=== PATIENT | female | born 1935 | race Caucasian/White ===

== ENCOUNTER 2016-07-26 19:33 | Inpatient (IN) | payer MEDICARE, OTHER ==
[~2016-07-26] VITALS: Ht 160 cm; Wt 85.6 kg
[~2016-07-26 19:33] MED LIST: MEDR4PAK3 PO; ROBA750T3 PO
[2016-07-26 19:35] VITALS: BP 162/73; PULSE 93; RESP 20; TEMP 98.3; O2SAT 97
[2016-07-26] MEDS ORDERED: SODIUM CHLORIDE 0.9% FLUSH 5 ML FLUSH IVF PRN (20:15)
[2016-07-26] MEDS ORDERED: ASPI81TA19 (20:17)
[2016-07-26 20:19] VITALS: BP 177/74; PULSE 98; PULSE 99; RESP 18; O2SAT 96; O2SAT 97
[2016-07-26] MEDS ORDERED: AMLO5 PO (20:20)
[2016-07-26] MEDS ORDERED: TOPR50TA PO (20:20)
[2016-07-26] MEDS ORDERED: LORA-373 PO (20:20)
[2016-07-26] MEDS ORDERED: BENI40TA3 PO (20:20)
[2016-07-26] MEDS ORDERED: MELO-1 PO (20:21)
[2016-07-26] MEDS ORDERED: ROSU20 PO (20:21)
[2016-07-26] MEDS ORDERED: ZETI10TA5 PO (20:21)
[2016-07-26] MEDS ORDERED: TRAM50TA PO (20:21)
[2016-07-26] MEDS ORDERED: CELE20TA PO (20:22)
[2016-07-26] MEDS ORDERED: RANI300C PO (20:22)
[2016-07-26] MEDS ORDERED: ESTR.625 PO (20:22)
[2016-07-26] MEDS ORDERED: PANTOPRAZOLE INJ 80 MG in SODIUM CHLORIDE 0.9% INJ 100 ML IV SCH (20:30)
[2016-07-26] MEDS ORDERED: SODIUM CHLORID 0.9% 500 ML INJ 500 ML IV ONE (20:30)
[2016-07-26] MEDS ORDERED: PANTOPRAZOLE INJ 80 MG in SODIUM CHLORIDE 0.9% INJ 35 ML IV ONE (20:30)
[2016-07-26] MEDS ORDERED: ASPIRIN 81 MG CHEW TAB CHEW ONE (20:30)
[2016-07-26] MEDS ORDERED: NITROGLYCERIN 0.4 MG SL 25 TABS/BTL SL ONE (20:30)
--- NOTE | 2016-07-26 20:44 | PD ---
HPI Chief Complaint: Chest Pain Time Seen by Provider: 20:10 Travel History International Travel<30 days: No Contact w/Intl Traveler<30days: No Traveled to known affect area: No History of Present Illness HPI The patient is 80 year old female who presents to the [facility] emergency department with a history of lower chest pain bilaterally down to just at the umbilicus that began a few weeks ago. The patient reports that the pain having coming and calling, however over the last week and a half it seems to be getting worse although continuing to coming go. A week and a half ago when it was at its peak she called ambulance services that she was concerned that she was having a heart attack. She reports that she had an EKG done which was unremarkable, therefore she did not get transported for evaluation. She discuss this further with her primary care physician who started her on lorazepam. He reports that the symptoms have continued. She reports that her last stress test was done 2 years ago. She reports that many years ago she did have a heart catheterization which was reportedly unremarkable. She is followed by a human factors scientist related to her history of hypertension and hyperlipidemia, no specific problems with her heart. The patient reports that she has had worsening acid reflux in spite of taking ranitidine. She reports that on July 24 she began to have dark-appearing stools. She saw her primary care physician again today and had a rectal examination done with trace Hemoccult-positive stools. She reports that he referred her to a collar feller which is pending at this point. She reports that this afternoon after taking a nap the pain recurred, therefore she decided to come to the emergency department for evaluation and treatment. She reports that when she has the pain she has shortness of breath associated with it, diaphoresis, and nausea. She reports that she's also had intermittent soft stools that continued to be brown or darker brown in color. She reports that this occurred multiple times throughout the day today. She did have one episode of vomiting a small amount of clear liquid. The patient reports that she on a topical estrogen twice daily. She denies having any lower extremity edema, calf pain or erythema. The patient denies recent fevers, cough, congestion, neck pain, urinary symptoms, or neurologic symptoms. FOR[facility]LY [facility] Past Medical History Narrative Medical The patient's past medical history is significant for a history of colon polyps , however her last colonoscopy was 3 years ago and had no polyps at that time, history of acid reflux, history of hypertension, hyperlipidemia, arthritis, history of sleep apnea. 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 Hysterectomy: Yes (90s) Other Surgery: Yes (carpal tunnel surgery bilateral, ) Social History Alcohol Use: No Tobacco Use: No Substance Use: No Allergies-Medications (Allergen,Severity, Reaction): Coded Allergies: No Known Allergies (Unverified , 07/26/16) Reported Meds & Prescriptions Reported Meds & Active Scripts Active Reported Premarin (Estrogens Conjugated) 0.625 Mg Tab 0.625 Mg PO DAILY Celexa (Citalopram Hydrobromide) 20 Mg Tab 20 Mg PO DAILY Ranitidine (Ranitidine HCl) 300 Mg Cap 300 Mg PO DAILY Tramadol (Tramadol HCl) 50 Mg Tab 50 Mg PO Q6H PRN Meloxicam 15 Mg Tab 15 Mg PO DAILY Zetia (Ezetimibe) 10 Mg Tab 10 Mg PO DAILY Crestor (Rosuvastatin Calcium) 20 Mg Tab 20 Mg PO DAILY Norvasc (Amlodipine Besylate) 5 Mg Tab 5 Mg PO DAILY Benicar (Olmesartan) 40 Mg Tab 40 Mg PO DAILY Lorazepam 0.5 Mg Tab 0.5 Mg PO Q4H PRN Toprol XL (Metoprolol Succinate) 50 Mg Tab 50 Mg PO DAILY Aspir-Low (Aspirin) 81 Mg Tabdr Review of Systems Except as stated in HPI: all other systems reviewed are Neg General / Constitutional: No: Fever Eyes: No: Visual changes HENT: No: Headaches, Rhinorrhea, Congestion Cardiovascular: Positive: Chest Pain or Discomfort, Dyspnea on exertion Respiratory: Positive: Shortness of Breath, No: Cough Gastrointestinal: Positive: Nausea, Vomiting, Diarrhea, Abdominal Pain, Changes in Bowel Habits, Indigestion Genitourinary: No: Dysuria Musculoskeletal: No: Pain Skin: No Rash Neurologic: No: Weakness, Focal Abnormalities, Change in Mentation, Slurred Speech, Sensory Disturbance Psychiatric: No: Depression Endocrine: No: Polydipsia Hematologic/Lymphatic: No: Easy Bruising Physical Exam Narrative General: The patient is a well-developed well-nourished female in no acute distress. Head and Neck exam: Head is normocephalic atraumatic. Eyes: EOMI, pupils are equal round and reactive to light. Nose: Midline septum with pink mucous membranes Mouth: Dentition unremarkable. Moist mucus membranes. Posterior oropharynx is not erythematous. No tonsillar hypertrophy. Uvula midline. Airway patent. Neck: No palpable lymphadenopathy. No nuchal rigidity. No thyromegaly. Cardiovascular: Regular rate and rhythm without murmurs, gallops, or rubs. No pulse deficit to the extremities. Lungs: Clear to auscultation bilaterally. No wheezes, rhonchi, or rales. Abdomen: Soft, with tenderness on palpation in the midepigastric area of right and left upper quadrant of the abdomen on deep palpation. No guarding, rebound, or rigidity. Negative Houston sign. No tenderness on palpation of McBurney's point. No other tenderness on palpation of the lower quadrants of the abdomen of the suprapubic area. No masses are palpable. Normal bowel sounds are audible. Extremities: No clubbing, cyanosis, or edema. 2+ pulses in all 4 extremities. No calf tenderness on palpation. Negative Homans sign. No palpable cords. Back: No spinous process tenderness to palpation. No costovertebral angle tenderness to palpation. Neurologic Exam: Grossly nonfocal. Skin Exam: No rash noted. Intact skin that is warm and dry. Data Data Last Documented VS Vital Signs Date Time Temp Pulse Resp B/P Pulse Ox O2 Delivery O2 Flow Rate FiO2 07/26/16 21:35 96 18 119/63 97 Room Air 07/26/16 19:35 98.3 Orders Electrocardiogram (07/26/16 19:46) B-Type Natriuretic Peptide (07/26/16 20:10) Ckmb (Isoenzyme) Profile (07/26/16 20:10) Complete Blood Count With Diff (07/26/16 20:10) Comprehensive Metabolic Panel (07/26/16 20:10) Magnesium (Mg) (07/26/16 20:10) Prothrombin Time / Inr (Pt) (07/26/16 20:10) Act Partial Throm Time (Ptt) (07/26/16 20:10) Troponin I (07/26/16 20:10) Lipase (07/26/16 20:10) Chest, Single Ap (07/26/16 20:10) Ecg Monitoring (07/26/16 20:10) Bilateral Bp Monitoring (07/26/16 20:10) Iv Access Insert/Monitor (07/26/16 20:10) Oximetry (07/26/16 20:10) Oxygen Administration (07/26/16 20:10) Sodium Chloride 0.9% Flush (Ns Flush) (07/26/16 20:15) Pantoprazole Inj (Protonix Inj) (07/26/16 20:30) Pantoprazole Inj (Protonix Inj) (07/26/16 20:30) Aspirin Chew (Aspirin Chew) (07/26/16 20:30) Nitroglycerin Sl (Nitrostat Sl) (07/26/16 20:30) Sodium Chlorid 0.9% 500 Ml Inj (Ns 500 M (07/26/16 20:30) Ct Abd/Pel W Iv Contrast(Rout) (07/26/16 20:44) Lactic Acid Sepsis Protocol (07/26/16 20:44) CKMB (07/26/16 20:20) CKMB% (07/26/16 20:20) Us Abdomen Gallbladder (07/26/16 21:49) Admit Order (Ed Use Only) (07/26/16 22:20) Consult Gastroenterology (07/26/16 ) Labs Laboratory Tests Test 07/26/16 07/26/16 20:20 21:15 White Blood Count 16.5 TH/MM3 Red Blood Count 4.81 MIL/MM3 Hemoglobin 13.9 GM/DL Hematocrit 41.0 % Mean Corpuscular Volume 85.4 FL Mean Corpuscular Hemoglobin 28.9 PG Mean Corpuscular Hemoglobin 33.9 % Concent Red Cell Distribution Width 15.0 % Platelet Count 242 TH/MM3 Mean Platelet Volume 8.2 FL Neutrophils (%) (Auto) 92.4 % Lymphocytes (%) (Auto) 2.7 % Monocytes (%) (Auto) 4.0 % Eosinophils (%) (Auto) 0.2 % Basophils (%) (Auto) 0.7 % Neutrophils # (Auto) 15.3 TH/MM3 Lymphocytes # (Auto) 0.5 TH/MM3 Monocytes # (Auto) 0.7 TH/MM3 Eosinophils # (Auto) 0.0 TH/MM3 Basophils # (Auto) 0.1 TH/MM3 CBC Comment DIFF FINAL Differential Comment Prothrombin Time 10.6 SEC Prothromb Time International 1.0 RATIO Ratio Activated Partial 25.4 SEC Thromboplast Time Sodium Level 138 MEQ/L Potassium Level 3.7 MEQ/L Chloride Level 103 MEQ/L Carbon Dioxide Level 25.9 MEQ/L Anion Gap 9 MEQ/L Blood Urea Nitrogen 12 MG/DL Creatinine 0.93 MG/DL Estimat Glomerular Filtration 58 ML/MIN Rate Random Glucose 117 MG/DL Calcium Level 9.8 MG/DL Magnesium Level 2.0 MG/DL Total Bilirubin 2.0 MG/DL Aspartate Amino Transf 216 U/L (AST/SGOT) Alanine Aminotransferase 215 U/L (ALT/SGPT) Alkaline Phosphatase 356 U/L Total Creatine Kinase 229 U/L Creatine Kinase MB 2.7 NG/ML Creatine Kinase MB % 1.2 % Troponin I LESS THAN 0.02 NG/ML B-Type Natriuretic Peptide 39 PG/ML Total Protein 8.5 GM/DL Albumin 4.3 GM/DL Lipase GREATER THAN 04460 U/L Lactic Acid Level 1.5 mmol/L MDM Medical Decision Making Medical Screen Exam Complete: Yes Emergency Medical Condition: Yes Medical Record Reviewed: Yes Interpretation(s) Last Impressions Gall Bladder Ultrasound 07/26/162148 Signed Impressions: Service Date/Time: Tuesday, July 26, 2016 22:00 - CONCLUSION: 1. Enlarged echogenic pancreas raising possibility of pancreatitis. 2. Distended gallbladder with gallbladder wall thickening with stones not being seen. The common bile duct is not dilated. Bob Aviles MD Abdomen/Pelvis CT [id number] Signed Impressions: Service Date/Time: Tuesday, July 26, 2016 23:00 - CONCLUSION: 1. The gallbladder is at the upper limits of normal in size and contains areas of increased echogenicity which may represent small gallstones and/or sludge. There is no definite wall thickening on the CT and is no inflammatory change. 2. There is no evidence of biliary obstruction. 3. The pancreas appears unremarkable with no focal mass or ductal dilatation. 4. Small retrocardiac hiatal hernia. Ramin Anguiano MD Chest X-Ray 07/26/[id number] Signed Impressions: Service Date/Time: Tuesday, July 26, 2016 20:46 - CONCLUSION: No acute disease. Bob Aviles MD Differential Diagnosis Hemorrhagic esophagitis, versus gastritis, versus peptic ulcer disease, versus pancreatitis, versus biliary colic, versus diverticulosis, versus AVM malformation, versus acute coronary syndrome Narrative Course During the course of the patients emergency department visit, the patients history, examination, and differential diagnosis were reviewed with the patient. The patient had IV access obtained and blood work sent for analysis. The patient was placed on a monitoring specialist with oximetry and blood pressure monitoring. An EKG was done on arrival. The patient's EKG shows a sinus rhythm heart rate of 93 with nonspecific T-wave abnormalities, no acute ST segment elevation is noted. A chest x-ray was ordered. The patient was provided Protonix 80 mg IV followed by Protonix 8 milligrams IV per hour. The patients laboratory studies were reviewed and remarkable for white count of 16.5, hemoglobin 13.9, platelets 242 with 92.4 neutrophils. CMP is remarkable for glucose of 117, total bilirubin 2.0, AST 216, ALT 2:15, alkaline phosphatase 356, CPK 229 with a normal MB percent, troponin I less than 0.02, BNP 39, lactic acid is 1.5, total protein is 8.5, lipase is greater than 15,000 , PT PTT are unremarkable. Radiology studies were reviewed and remarkable for a chest x-ray that showed no acute abnormality. CT scan of the abdomen and pelvis shows the gallbladder at the upper limits of normal in size and contains area of increased echogenicity which may represent small gallstones and/or sludge. There is no definite wall thickening on CT and no inflammatory changes. No evidence of biliary obstruction. The patient pancreas appears unremarkable with no focal mass or ductal dilatation. An ultrasound has been ordered to further evaluate the gallbladder. The patients results were discussed with the patient, including the plan of care. I explained that further testing and/ or monitoring is indicated based on the patients history, examination, and/ or laboratory findings. Therefore, I recommended admission for additional evaluation. The patient expressed understanding and was agreeable with this plan. The patient was admitted to the hospital in stable condition and sent to a bed under the care of Dr. Eliseo Lopez. Physician Communication Physician Communication I spoke to Dr. Lise, the collar feller on-call at 9:50 PM regarding this patient's case. He will be seeing the patient in consultation regarding suspected gallstone related pancreatitis. The patient's case was discussed with Dr. Lopez who did agree to admit the patient for further evaluation and treatment at this time. Diagnosis Primary Impression: Abdominal pain Qualified Code: R10.10 - Pain of upper abdomen Additional Impression: Acute pancreatitis Qualified Code: K85.10 - Acute biliary pancreatitis, unspecified complication status Admitting Information Admitting Physician Requests: Admit Lisseth Moe MD Jul 26, 2016 20:44
[2016-07-26 20:45] LABS: AUTOMATED NEUTROPHIL # 15.3 TH/MM3 (1.8-7.7); BASOPHIL # 0.1 TH/MM3 (0-0.2); BASOPHIL % 0.7 % (0.0-2.0); EOSINOPHIL % 0.2 % (0.0-4.0); HEMO FLAGS DIFF FINAL; LYMPH % 2.7 % (9.0-44.0); LYMPHOCYTE # 0.5 TH/MM3 (1.0-4.8); MEAN CELL VOLUME 85.4 FL (80.0-100.0); MEAN CORPUSCULAR HEMOGLOBIN 28.9 PG (27.0-34.0); MEAN CORPUSCULAR HGB CONC 33.9 % (32.0-36.0); NEUT % 92.4 % (16.0-70.0); PLATELET COUNT 242 TH/MM3 (150-450); RED BLOOD COUNT 4.81 MIL/MM3 (4.00-5.30); WHITE BLOOD COUNT 16.5 TH/MM3 (4.0-11.0)
[2016-07-26 21:03] LABS: APTT (PATIENT) 25.4 SEC (24.3-30.1); PROTHROMBIN TIME - PATIENT 10.6 SEC (9.8-11.6)
[2016-07-26 21:07] LABS: ANION GAP 9 MEQ/L (5-15); AST (GOT) 216 U/L (15-37); BICARBONATE 25.9 MEQ/L (21.0-32.0); BLOOD UREA NITROGEN 12 MG/DL (7-18); CHLORIDE 103 MEQ/L (98-107); GLOMERULAR FILTRATION RATE 58 ML/MIN (>89); SODIUM (NA) 138 MEQ/L (136-145)
[2016-07-26 21:08] LABS: POTASSIUM 3.7 MEQ/L (3.5-5.1)
[2016-07-26 21:12] LABS: ALKALINE PHOSPHATASE 356 U/L (45-117); ALT (GPT) 215 U/L (10-53); CREATINE KINASE 229 U/L (26-192)
[2016-07-26 21:35] VITALS: BP 119/63; PULSE 96; RESP 18; O2SAT 97
[2016-07-26 21:39] LABS: CKMB 2.7 NG/ML (0.5-3.6)
--- NOTE | 2016-07-26 22:16 | RADRPT ---
EXAM DATE/TIME: 07/26/2016 20:46 [facility] COMPARISON: No previous studies available for comparison. INDICATIONS : Chest pain and vomiting. MEDICAL HISTORY : Hypertension. Hypercholesterolemia. Sleep apnea. SURGICAL HISTORY : None. ENCOUNTER: Initial ACUITY: 2 days PAIN SCORE: 5/10 LOCATION: Bilateral chest FINDINGS: A single view of the chest demonstrates the lungs to be symmetrically aerated without evidence of mas s, infiltrate or effusion. The cardiomediastinal contours are unremarkable. Osseous structures are intact. CONCLUSION: No acute disease. Bob Aviles MD on July 26, 2016 at 22:14 Board Certified Radiologist. This report was verified electronically.
[2016-07-26] MEDS: LACTATED RINGER'S 1000 ML INJ 1,000 ML IV SCH (22:24)
[2016-07-26] MEDS ORDERED: SODIUM CHLORIDE 0.9% FLUSH 5 ML FLUSH FLUSH PRN (22:30)
[2016-07-26] MEDS ORDERED: ONDANSETRON HCL 4 MG/2 ML VIAL IVP PRN (22:30)
[2016-07-26] MEDS ORDERED: NALOXONE HCL 0.4 MG/ML AMP IV PRN (22:30)
[2016-07-26] MEDS ORDERED: ENALAPRILAT 2.5 MG/2 ML VIAL IV PUSH PRN (22:45)
[2016-07-26] MEDS ORDERED: IOHEXOL 350 MG/ML 10 ML VIAL (for RAD DIAG) IV ONE (23:19)
--- NOTE | 2016-07-26 23:23 | RADRPT ---
EXAM DATE/TIME: 07/26/2016 22:00 [facility] COMPARISON: No previous studies available for comparison. INDICATIONS : Right upper quadrant pain. MEDICAL HISTORY : Hypercholesterolemia. Hypertension. . Sleep apnea. SURGICAL HISTORY : Hysterectomy. Left hip surgery. Bilateral knee surgery. Bilateral carpal tunnel surgery. ENCOUNTER: Initial ACUITY: 2 weeks PAIN SCORE: 5/10 LOCATION: Right upper quadrant MEASUREMENTS: LIVER: 16.4 cm length COMMON DUCT: 5 mm RIGHT KIDNEY: 10.4 x 5.8 x 5.5 cm FINDINGS: LIVER: Normal echotexture without focal lesion or ductal dilatation. COMMON DUCT: No intraluminal mass or stone visualized. GALLBLADDER: The gallbladder is distended. There is increased echogenicity in the gallbladder wall which likely re presents thickening. Tumefactive sludge could have this appearance but typically sludge is mobile. Th is was not mobile. There are septations in the gallbladder. Gallstones are not seen. PANCREAS: The pancreas appears enlarged and echogenic. RIGHT KIDNEY: No evidence of hydronephrosis, stone, or mass. CONCLUSION: 1. Enlarged echogenic pancreas raising possibility of pancreatitis. 2. Distended gallbladder with gallbladder wall thickening with stones not being seen. The common bile duct is not dilated. Bob Aviles MD on July 26, 2016 at 23:17 Board Certified Radiologist. This report was verified electronically.
--- NOTE | 2016-07-26 23:35 | RADRPT ---
EXAM DATE/TIME: 07/26/2016 23:00 [facility] COMPARISON: US ABDOMEN - GALLBLADDER, July 26, 2016, 22:00. INDICATIONS : Upper abdominal pain intermittently. Abnormal ultrasound demonstrating large echogenic pancreas as we ll as distended gallbladder with gallbladder wall thickening no definite gallstones. IV CONTRAST: 95 cc Omnipaque 350 (iohexol) IV ORAL CONTRAST: No oral contrast ingested. RADIATION DOSE: 9.96 CTDIvol (mGy) MEDICAL HISTORY : Hypertension. SURGICAL HISTORY : Left hip surgery. ENCOUNTER: Initial ACUITY: 1 week PAIN SCALE: 4/10 LOCATION: Bilateral upper quadrant TECHNIQUE: Volumetric scanning of the abdomen and pelvis was performed. Using automated exposure control and ad justment of the mA and/or kV according to patient size, radiation dose was kept as low as reasonably achievable to obtain optimal diagnostic quality images. FINDINGS: LOWER LUNGS: The visualized lower lungs are clear. LIVER: Homogeneous density without lesion. There is no dilation of the biliary tree. The gallbladder is at the upper limits of normal in size. There small areas of increased echogenicity noted within the gal lbladder which are ill-defined. There are apparent tiny calcifications noted best seen on coronal taye ge #45. There is no surrounding inflammatory change or definite wall thickening. SPLEEN: Normal size without lesion. PANCREAS: The pancreas appears normal in size in shape with no pancreatic ductal dilatation. There is no focal mass or inflammatory change. KIDNEYS: Normal in size and shape. There is no solid mass, stone or hydronephrosis. There is a small cyst in the right lower pole. ADRENAL GLANDS: Within normal limits. VASCULAR: There is no aortic aneurysm. BOWEL/MESENTERY: A small retrocardiac hiatal hernia is present. The stomach, small bowel, and colon demonstrate no acu te abnormality. There is no free intraperitoneal air or fluid. ABDOMINAL WALL: Within normal limits. RETROPERITONEUM: There is no lymphadenopathy. BLADDER: No wall thickening or mass. REPRODUCTIVE: Within normal limits. INGUINAL: There is no lymphadenopathy or hernia. MUSCULOSKELETAL: The patient is status post left hip arthroplasty with streak artifact. There is a moderate scoliosis with degenerative change in the thoracic spine. CONCLUSION: 1. The gallbladder is at the upper limits of normal in size and contains areas of increased echogenic ity which may represent small gallstones and/or sludge. There is no definite wall thickening on the C T and is no inflammatory change. 2. There is no evidence of biliary obstruction. 3. The pancreas appears unremarkable with no focal mass or ductal dilatation. 4. Small retrocardiac hiatal hernia. Ramin Anguiano MD on July 26, 2016 at 23:28 Board Certified Radiologist. This report was verified electronically.
[2016-07-27] VITALS: BP 150/78; PULSE 95; RESP 18; TEMP 100; O2SAT 96
[2016-07-27 06:33] LABS: BASOPHIL % 0.2 % (0.0-2.0); HEMATOCRIT 37.2 % (35.0-46.0); HEMO FLAGS DIFF FINAL; LYMPH % 6.9 % (9.0-44.0); LYMPHOCYTE # 1.2 TH/MM3 (1.0-4.8); MEAN CORPUSCULAR HEMOGLOBIN 28.4 PG (27.0-34.0); MEAN CORPUSCULAR HGB CONC 33.4 % (32.0-36.0); MONO % 4.9 % (0.0-8.0); PLATELET COUNT 230 TH/MM3 (150-450); RED BLOOD COUNT 4.37 MIL/MM3 (4.00-5.30); RED CELL DISTRIBUTION WIDTH 15.3 % (11.6-17.2); WHITE BLOOD COUNT 17.1 TH/MM3 (4.0-11.0)
[2016-07-27 06:58] LABS: ALKALINE PHOSPHATASE 311 U/L (45-117); ALT (GPT) 190 U/L (10-53); ANION GAP 12 MEQ/L (5-15); AST (GOT) 179 U/L (15-37); BICARBONATE 24.7 MEQ/L (21.0-32.0); BLOOD UREA NITROGEN 11 MG/DL (7-18); CHLORIDE 107 MEQ/L (98-107); GLOMERULAR FILTRATION RATE 61 ML/MIN (>89); POTASSIUM 3.5 MEQ/L (3.5-5.1); SODIUM (NA) 144 MEQ/L (136-145); TOTAL BILIRUBIN ADULT 2.9 MG/DL (0.2-1.0)
[2016-07-27] MEDS: ACETAMINOPHEN 325 MG TAB PO PRN ×2 (07:53→19:58)
[2016-07-27] MEDS: SODIUM CHLORIDE 0.9% FLUSH 5 ML FLUSH FLUSH SCH ×2 (07:54→19:56)
[2016-07-27] MEDS: LACTATED RINGER'S 1000 ML INJ 1,000 ML IV SCH ×2 (07:54→18:06)
[2016-07-27 08:00] VITALS: BP 127/72; PULSE 91; RESP 18; TEMP 99.5; O2SAT 94
[2016-07-27] MEDS ORDERED: INFLUENZA VIRUS VACCINE (QUADRIVALENT) 0.5 ML SYR IM ONE (09:00)
--- NOTE | 2016-07-27 09:15 | HHI.HP ---
History of Present Illness Service INTERNAL MEDICINE Primary Care Physician JUAN MANUEL LOPEZ MD Admission Diagnosis ACUTE PANCREATITIS. INTRACTABLE PAIN. Diagnoses: History of Present Illness 80 year old female who has a history of developing pain in the upper abdomen with some discomfort for the lower chest as well as radiation to the back. She initially had vomiting episodes after eating somewhat fatty meals and off and on pain as well. She had passage of very dark stool and became quite concerned about such. She was seen in the office yesterday and the stool was weakly heme positive. Plans were being made to have her seen by a Gastroenterology as an outpatient. She later became very nauseous and had severe pain in the upper abdomen with radiation to the back. She stated that on a scale of 1-10, the pain was a 12. She was transported to the [facility] Emergency Room for evaluation. She is found with a presentation of acute pancreatitis. She is admitted for further assessment and treatment. There is denial of any recent illness, infection or trauma. No recent travel. Review of Systems Constitutional: COMPLAINS OF: Fatigue, Change in appetite Cardiovascular: COMPLAINS OF: Chest pain Gastrointestinal: COMPLAINS OF: Abdominal pain, Black stools, Nausea, Vomiting Musculoskeletal: COMPLAINS OF: Joint pain, Stiffness Psychiatric: COMPLAINS OF: Anxiety, Depression Past Family Social History Allergies: Coded Allergies: No Known Allergies (Unverified , 07/26/16) Past Medical History 1. Hypertension. 2. Hyperlipidemia. 3. Osteoarthritis. 4. Gastroesophageal Reflux Disease. 5. Obstructive Sleep Apnea Syndrome. 6. Colonic Polyps. 7.Anxiety Disorder. 8. Depression. 9. Osteopenia. Past Surgical History 1. Bilateral Carpal Tunnel Release. 2. Bilateral Total Knee Replacement. 3. Left Total Hip Replacement. 4. Left Salivary Gland Tumor Resection. 5. Total Abdominal Hysterectomy. 6. Cardiac Catheterization. 7. Colonoscopy. Family History The family history is significant for Father in his 80's with history of Asthma. Mother is at age 47 with the specific nature of her being unknown. One brother with a history of Asthma. She has four children in good health. She was born in [place], [place]. She completed high school and is currently retired. Social History She is and currently lives alone. She in a nonsmoker and does not drink. She makes no use of recreational drugs. Physical Exam Vital Signs Vital Signs Date Time Temp Pulse Resp B/P Pulse Ox O2 Delivery O2 Flow Rate FiO2 07/27/16 08:00 99.5 91 18 127/72 94 07/27/16 00:00 100.0 95 18 150/78 96 07/26/16 21:35 96 18 119/63 97 Room Air 07/26/16 20:19 95 Room Air 07/26/16 20:19 98 18 177/74 96 07/26/16 20:19 99 18 177/74 97 Room Air 07/26/16 19:35 98.3 93 20 162/73 97 Physical Exam GENERAL: This is a well-nourished, well-developed patient, in moderate distress for abdominal pain. SKIN: No rashes, ecchymoses or lesions. Warm and dry. HEAD: Atraumatic. Normocephalic. No temporal or scalp tenderness. EYES: Pupils equal round and reactive. Extraocular motions intact. No scleral icterus. No injection or drainage. ENT: Nose without drainage. Throat without erythema, tonsillar hypertrophy or exudate. Uvula midline. Airway patent. NECK: Trachea midline. No JVD, thyromegaly, carotid bruits or lymphadenopathy. Supple, nontender, no meningeal signs. CARDIOVASCULAR: Regular rate and rhythm with S1 and S2 distinct. She has a soft grade 1-2/6 systolic murmur at the aortic focus without major radiation. No S3, S4 or rubs. RESPIRATORY: Clear to auscultation. Breath sounds equal bilaterally. No wheezes , rales, or rhonchi. GASTROINTESTINAL: Abdomen is soft with bowel sounds appearing to be normal. There is some tenderness in the epigastric area to mild palpation. It is nondistended. No hepato-splenomegaly, or palpable masses. No guarding. MUSCULOSKELETAL: Extremities without clubbing, cyanosis, or edema. There are hypertrophic changes at the knee joints with tenderness to firm palpation. No effusion or edema noted. No calf tenderness. Negative Homans sign bilaterally. NEUROLOGICAL: Awake and alert. Cranial nerves II through XII intact. Motor and sensory grossly within normal limits. Five out of 5 muscle strength in all muscle groups. Normal speech. Laboratory Laboratory Tests Test 07/26/16 07/26/16 07/27/16 20:20 21:15 05:07 White Blood Count 16.5 17.1 Red Blood Count 4.81 4.37 Hemoglobin 13.9 12.4 Hematocrit 41.0 37.2 Mean Corpuscular Volume 85.4 85.0 Mean Corpuscular Hemoglobin 28.9 28.4 Mean Corpuscular Hemoglobin 33.9 33.4 Concent Red Cell Distribution Width 15.0 15.3 Platelet Count 242 230 Mean Platelet Volume 8.2 8.6 Neutrophils (%) (Auto) 92.4 88.0 Lymphocytes (%) (Auto) 2.7 6.9 Monocytes (%) (Auto) 4.0 4.9 Eosinophils (%) (Auto) 0.2 0.0 Basophils (%) (Auto) 0.7 0.2 Neutrophils # (Auto) 15.3 15.0 Lymphocytes # (Auto) 0.5 1.2 Monocytes # (Auto) 0.7 0.8 Eosinophils # (Auto) 0.0 0.0 Basophils # (Auto) 0.1 0.0 CBC Comment DIFF FINAL DIFF FINAL Differential Comment Prothrombin Time 10.6 Prothromb Time International 1.0 Ratio Activated Partial 25.4 Thromboplast Time Sodium Level 138 144 Potassium Level 3.7 3.5 Chloride Level 103 107 Carbon Dioxide Level 25.9 24.7 Anion Gap 9 12 Blood Urea Nitrogen 12 11 Creatinine 0.93 0.89 Estimat Glomerular Filtration 58 61 Rate Random Glucose 117 113 Calcium Level 9.8 9.6 Magnesium Level 2.0 Total Bilirubin 2.0 2.9 Aspartate Amino Transf 216 179 (AST/SGOT) Alanine Aminotransferase 215 190 (ALT/SGPT) Alkaline Phosphatase 356 311 Total Creatine Kinase 229 Creatine Kinase MB 2.7 Creatine Kinase MB % 1.2 Troponin I LESS THAN 0.02 B-Type Natriuretic Peptide 39 Total Protein 8.5 7.2 Albumin 4.3 3.5 Lipase GREATER THAN 8244 01649 Lactic Acid Level 1.5 Result Diagram: 07/27/16 0507 07/27/16 0507 Assessment and Plan Assessment and Plan ASSESSMENT 1. Acute Pancreatitis. 2. Intractable Pain. 3. Possible Cholelithiasis. 4. Gastroesophageal Reflux Disease. 5. Hypertension. 6. Hyperlipidemia. 7. Advanced Osteoarthritis. 8. Anxiety Disorder. 9. Depression. PLAN 1. Admit to the hospital as an Inpatient. 2. Place on N. P. O. status. 3. Intravenous fluid hydration support. 4. Consultation to Gastroenterology. 5. Intravenous medication for blood pressure control. 6. Follow up laboratory assessment. 7. DVT, PE and PUD prophylaxis. Juan Manuel Lopez MD Jul 27, 2016 09:15
--- NOTE | 2016-07-27 10:07 | PD.CONS ---
HPI History of Present Illness This is a 80 year old female with past medical history of sleep apnea, HTN, hyperlipidemia, arthritis for which she takes Meloxicam daily presents to the ED yesterday with extreme pain from lower chest that radiated to the entire abdomen associated with nausea, and spitting up white foamy spit and was admitted for pancreatitis. Patient states a month ago, she had an episode of diarrhea, and vomiting that lasted for few days then subsided, but she felt weak after wards. States she felt abd discomfort on off, but a week ago, she developed a severe chest pain to where she thought she is having a heart attack so she called 911, an EKG was performed and that was unremarkable, therefore she did not get transported for evaluation. She had a follow up with primary care physician who started her on lorazepam. Symptoms continued on off. On morning, she noted black stools and that was concerning for her, the next morning she had a f/u with PCP, stool test was heme (+), and referral to GI was made, but pending. She continue to have dark stools but no so much black like the first episode. Denies vomiting, hematemesis, hematochezia, fever, or chills. Last colonoscopy was 3 years ago, never had an EGD. No previous history of this. she has been under a lot of stress at home. Hgb is 13.9--->12.4, lipase was > 90709, elevated LFTs and bilirubin, WBC 17. She denies alcohol intake. US ---> Enlarged echogenic pancreas raising possibility of pancreatitis. 2. Distended gallbladder with gallbladder wall thickening with stones not being seen. The common bile duct is not dilated. CT--->. 1.The gallbladder is at the upper limits of normal in size and contains areas of increased echogenicity which may represent small gallstones and/or sludge. There is no definite wall thickening on the CT and is no inflammatory change. 2. There is no evidence of biliary obstruction. 3. The pancreas appears unremarkable with no focal mass or ductal dilatation. (Sharon Partida) PFSH Past Medical History history of acid reflux, history of hypertension, hyperlipidemia, arthritis, history of sleep apnea. Past Surgical History 2 knee replacement left hip replacement Carpel tunnel syndrome Salivary gland removal Hysterectomy Colonoscopy 3 years ago with history of polyps (Sharon Paritda) Coded Allergies: No Known Allergies (Unverified , 07/26/16) Medications Current Medications Medications (Trade) Dose Ordered Sig/Shaista Route Start Time Stop Time Status Last Admin IV Flush 2 ml 2 ml UNSCH PRN IVF 07/26/16 20:15 (Lr 1000 ml Inj) 1,000 ml @ 100 mls/hr Q10H IV 07/26/16 22:24 07/27/16 07:54 (NS Flush) 2 ml UNSCH PRN FLUSH 07/26/16 22:30 (NS Flush) 2 ml BID FLUSH 07/27/16 09:00 07/27/16 07:54 (Tylenol) 650 mg Q4H PRN PO 07/26/16 22:30 07/27/16 07:53 (Zofran Inj) 4 mg Q6H PRN IVP 07/26/16 22:30 (Narcan Inj) 0.4 mg UNSCH PRN IV 07/26/16 22:30 (Dilaudid Pf Inj) 0.5 mg Q4H PRN IV PUSH 07/26/16 22:45 (Vasotec Inj) 2.5 mg Q6H PRN IV PUSH 07/26/16 22:45 (Protonix Inj) 40 mg DAILY IV PUSH 07/27/16 09:15 Family History No family history of colon or gastric cancer Social History Alcohol Use: No Tobacco Use: No Substance Use: No (Sharon Partida) Review of Systems Constitutional: COMPLAINS OF: Fatigue, DENIES: Fever, Chills Endocrine: DENIES: Polyuria Eyes: DENIES: Double Vision Ears, nose, mouth, throat: DENIES: Hoarseness Respiratory: DENIES: Shortness of breath Cardiovascular: DENIES: Lower Extremity Edema Gastrointestinal: COMPLAINS OF: Abdominal pain, Black stools, Nausea, Anorexia , Heartburn, DENIES: Bloody stools, Constipation, Diarrhea, Vomiting, Difficulty Swallowing, Odynophagia, Swelling of Abdomen, Hematemesis Genitourinary: DENIES: Hematuria Musculoskeletal: COMPLAINS OF: Back pain Integumentary: DENIES: Jaundice Hematologic/lymphatic: DENIES: Bruising Immunologic/allergic: DENIES: Eczema Neurologic: DENIES: Abnormal gait Psychiatric: DENIES: Anxiety (Sharon Partida) GI Exam Vitals I&O Vital Signs Date Time Temp Pulse Resp B/P Pulse Ox O2 Delivery O2 Flow Rate FiO2 07/27/16 08:53 16 07/27/16 08:00 99.5 91 18 127/72 94 07/27/16 00:00 100.0 95 18 150/78 96 07/26/16 21:35 96 18 119/63 97 Room Air 07/26/16 20:19 95 Room Air 07/26/16 20:19 98 18 177/74 96 07/26/16 20:19 99 18 177/74 97 Room Air 07/26/16 19:35 98.3 93 20 162/73 97 I/O 07/26/16 07/26/16 07/26/16 07/27/16 07/27/16 07/27/16 07:00 15:00 23:00 07:00 15:00 23:00 Intake Total 580 ml 0 ml Output Total 600 ml Balance -20 ml 0 ml Intake Oral 0 ml 0 ml IV Total 580 ml Output Urine Total 600 ml # Voids 1 # Bowel Movements 0 Imaging Last Impressions Gall Bladder Ultrasound [id number]/26/[id number] Signed Impressions: Service Date/Time: Tuesday, July 26, 2016 22:00 - CONCLUSION: 1. Enlarged echogenic pancreas raising possibility of pancreatitis. 2. Distended gallbladder with gallbladder wall thickening with stones not being seen. The common bile duct is not dilated. Bob Aviles MD Abdomen/Pelvis CT [id number] Signed Impressions: Service Date/Time: Tuesday, July 26, 2016 23:00 - CONCLUSION: 1. The gallbladder is at the upper limits of normal in size and contains areas of increased echogenicity which may represent small gallstones and/or sludge. There is no definite wall thickening on the CT and is no inflammatory change. 2. There is no evidence of biliary obstruction. 3. The pancreas appears unremarkable with no focal mass or ductal dilatation. 4. Small retrocardiac hiatal hernia. Ramin Anguiano MD Chest X-Ray 07/26/162009 Signed Impressions: Service Date/Time: Tuesday, July 26, 2016 20:46 - CONCLUSION: No acute disease. Bob Aviles MD Laboratory Test 07/26/16 07/26/16 07/27/16 20:20 21:15 05:07 White Blood Count 16.5 TH/MM3 17.1 TH/MM3 Red Blood Count 4.81 MIL/MM3 4.37 MIL/MM3 Hemoglobin 13.9 GM/DL 12.4 GM/DL Hematocrit 41.0 % 37.2 % Mean Corpuscular Volume 85.4 FL 85.0 FL Mean Corpuscular Hemoglobin 28.9 PG 28.4 PG Mean Corpuscular Hemoglobin 33.9 % 33.4 % Concent Red Cell Distribution Width 15.0 % 15.3 % Platelet Count 242 TH/MM3 230 TH/MM3 Mean Platelet Volume 8.2 FL 8.6 FL Neutrophils (%) (Auto) 92.4 % 88.0 % Lymphocytes (%) (Auto) 2.7 % 6.9 % Monocytes (%) (Auto) 4.0 % 4.9 % Eosinophils (%) (Auto) 0.2 % 0.0 % Basophils (%) (Auto) 0.7 % 0.2 % Neutrophils # (Auto) 15.3 TH/MM3 15.0 TH/MM3 Lymphocytes # (Auto) 0.5 TH/MM3 1.2 TH/MM3 Monocytes # (Auto) 0.7 TH/MM3 0.8 TH/MM3 Eosinophils # (Auto) 0.0 TH/MM3 0.0 TH/MM3 Basophils # (Auto) 0.1 TH/MM3 0.0 TH/MM3 CBC Comment DIFF FINAL DIFF FINAL Differential Comment Prothrombin Time 10.6 SEC Prothromb Time International 1.0 RATIO Ratio Activated Partial 25.4 SEC Thromboplast Time Sodium Level 138 MEQ/L 144 MEQ/L Potassium Level 3.7 MEQ/L 3.5 MEQ/L Chloride Level 103 MEQ/L 107 MEQ/L Carbon Dioxide Level 25.9 MEQ/L 24.7 MEQ/L Anion Gap 9 MEQ/L 12 MEQ/L Blood Urea Nitrogen 12 MG/DL 11 MG/DL Creatinine 0.93 MG/DL 0.89 MG/DL Estimat Glomerular Filtration 58 ML/MIN 61 ML/MIN Rate Random Glucose 117 MG/DL 113 MG/DL Calcium Level 9.8 MG/DL 9.6 MG/DL Magnesium Level 2.0 MG/DL Total Bilirubin 2.0 MG/DL 2.9 MG/DL Aspartate Amino Transf 216 U/L 179 U/L (AST/SGOT) Alanine Aminotransferase 215 U/L 190 U/L (ALT/SGPT) Alkaline Phosphatase 356 U/L 311 U/L Total Creatine Kinase 229 U/L Creatine Kinase MB 2.7 NG/ML Creatine Kinase MB % 1.2 % Troponin I LESS THAN 0.02 NG/ML B-Type Natriuretic Peptide 39 PG/ML Total Protein 8.5 GM/DL 7.2 GM/DL Albumin 4.3 GM/DL 3.5 GM/DL Lipase GREATER THAN 8244 U/L 09216 U/L Lactic Acid Level 1.5 mmol/L Physical Examination HEENT: Pupils round and reactive to light; normocephalic; atraumatic; no jaundice. Throat is clear. NECK: Neck is supple, no JVD, no lymphadenopathy. CHEST: Chest is clear to auscultation and percussion. CARDIAC: Regular rate and rhythm with no murmur gallop or rubs. ABDOMEN: Soft, nondistended, nontender; no hepatosplenomegaly; bowel sounds are present in all four quadrants. EXTREMITIES: No clubbing, cyanosis, or edema. SKIN: Normal; no rash; no jaundice. PROGRAM AND RESEARCH COORDINATOR: No focal deficits; alert and oriented times three. (Sharon Partida) Assessment and Plan Plan - Acute pancreatitis- Severe abdominal pain on off for the past month, worsening in severity for the last week she has been under a lot of stress at home. Hgb is 13.9--->12.4, lipase was > 63504, elevated LFTs and bilirubin, WBC 17. She denies alcohol intake. US ---> Enlarged echogenic pancreas raising possibility of pancreatitis. 2. Distended gallbladder with gallbladder wall thickening with stones not being seen. The common bile duct is not dilated. CT--->. 1.The gallbladder is at the upper limits of normal in size and contains areas of increased echogenicity which may represent small gallstones and/or sludge. There is no definite wall thickening on the CT and is no inflammatory change. 2. There is no evidence of biliary obstruction. 3. The pancreas appears unremarkable with no focal mass or ductal dilatation. - Elevated LFTs/bili, trending down, imaging as above, finding concerning for gastric ulcer, biliary obstruction - Black stools/ Heme (+) stools; daily use of Meloxicam, hgb stable, slight drop , continue to have dark stools - Leukocytosis- WBC 17, febrile, secondary to above - HTN, arthritis, hyperlipidemia, sleep apnea per attending Plan: - NPO - MRCP - Pending results above will decide on EGD vs ERCP - LFTs, lipase in the am - Cont. hydration - Pain control - Supportive care - Patient seen and examined by Lise Aragon and myself and this note is written on his behalf. (Sharon Partida) Physician Comments Seen and examined, plan as above, MRCP and accordingly to proceed with ERCP or not. Will follow up with you. (Lissy Lezama MD) Sharon Partida Jul 27, 2016 10:07 Lissy Lezama MD Jul 27, 2016 15:13
[2016-07-27] MEDS: PANTOPRAZOLE SODIUM 40 MG VIAL IV PUSH SCH (10:10)
[2016-07-27 11:38] VITALS: BP 131/63; PULSE 78; RESP 19; TEMP 97.4; O2SAT 95
[2016-07-27 16:00] VITALS: BP 136/68; PULSE 74; RESP 19; TEMP 98.9; O2SAT 95
--- NOTE | 2016-07-27 16:30 | RADRPT ---
EXAM DATE/TIME: 07/27/2016 14:44 [facility] COMPARISON: CT ABDOMEN & PELVIS W CONTRAST, July 26, 2016, 23:00. US ABDOMEN - GALLBLADDER, July 26 6, 22:00. INDICATIONS : Abdominal pain. MEDICAL HISTORY : Hypertension. Hyperlipidemia SURGICAL HISTORY : Hysterectomy. knee and hip replacement, salivary gland ENCOUNTER: Subsequent ACUITY: 4-6 days PAIN SCORE: 3/10 LOCATION: Bilateral upper quadrant abdomen TECHNIQUE: Multiplanar, multisequence magnetic resonance imaging of the abdomen was performed. High-resolution 3D dataset was utilized to reconstruct maximum-intensity projection (MIP) images. FINDINGS: The gallbladder is seen isn't distended luminal structure in at the fundus suggestion decreased areas of signal intensity suggesting stones. The pancreas appears normal as is the pancreatic duct common bile duct and intrahepatic ducts are normal in size maximal width 4.5 cm of the common duct however d istally proximal to the sphincter of odontoid there is at least one if not a second 5 mm stone nonobs tructing in the distal duct. CONCLUSION: Probable stones and sludge in the fundus of the gallbladder. One if not a second 5 mm stone nonobstru cting in the distal common bile duct. Guido Moreau MD on July 27, 2016 at 16:24 Board Certified Radiologist. This report was verified electronically.
[2016-07-27 20:00] VITALS: BP 130/70; PULSE 76; RESP 20; TEMP 98.8; O2SAT 94
--- NOTE | 2016-07-27 23:17 | EKG ---
Date Performed: 07/26/2016 Time Performed: 19:46:54 PTAGE: 80 years EKG: Sinus rhythm NONSPECIFIC T-WAVE ABNORMALITY BORDERLINE ECG NO PREVIOUS TRACING DOCTOR: Thor Wade Interpretating Date/Time 07/27/2016 23:11:37
[2016-07-27] MEDS ORDERED: LACTATED RINGER'S 1000 ML IV SCH (23:45)
[2016-07-28] VITALS: BP 130/68; PULSE 74; RESP 20; TEMP 98.4; O2SAT 92
[2016-07-28] MEDS: LACTATED RINGER'S 1000 ML INJ 1,000 ML IV SCH ×3 (04:24→19:40)
[2016-07-28 05:31] LABS: AUTOMATED NEUTROPHIL # 6.6 TH/MM3 (1.8-7.7); BASOPHIL % 0.3 % (0.0-2.0); EOSINOPHIL # 0.1 TH/MM3 (0-0.4); EOSINOPHIL % 1.4 % (0.0-4.0); HEMATOCRIT 36.3 % (35.0-46.0); HEMO FLAGS DIFF FINAL; LYMPH % 11.3 % (9.0-44.0); LYMPHOCYTE # 0.9 TH/MM3 (1.0-4.8); MEAN CELL VOLUME 85.3 FL (80.0-100.0); MEAN CORPUSCULAR HEMOGLOBIN 29.3 PG (27.0-34.0); MEAN CORPUSCULAR HGB CONC 34.4 % (32.0-36.0); MONO % 7.7 % (0.0-8.0); NEUT % 79.3 % (16.0-70.0); PLATELET COUNT 205 TH/MM3 (150-450); RED BLOOD COUNT 4.26 MIL/MM3 (4.00-5.30); WHITE BLOOD COUNT 8.3 TH/MM3 (4.0-11.0)
[2016-07-28] MEDS: ACETAMINOPHEN 325 MG TAB PO PRN ×2 (05:34→10:36)
[2016-07-28 05:53] LABS: BICARBONATE 25.3 MEQ/L (21.0-32.0); INDIRECT BILIRUBIN 1.4 MG/DL (0.0-0.8); MAGNESIUM 1.9 MG/DL (1.5-2.5)
[2016-07-28 08:00] VITALS: BP 139/87; PULSE 92; RESP 20; TEMP 98.2; O2SAT 94
[2016-07-28] MEDS: PANTOPRAZOLE SODIUM 40 MG VIAL IV PUSH SCH (08:52)
[2016-07-28] MEDS: SODIUM CHLORIDE 0.9% FLUSH 5 ML FLUSH FLUSH SCH ×2 (08:53→19:41)
[2016-07-28] MEDS ORDERED: POTASSIUM PHOSPHATE INJ 30 MMOL in SODIUM CHLOR 0.9% 250 ML INJ 250 ML IV ONE (09:00)
[2016-07-28 12:00] VITALS: BP_SYST 140; BP_SYST 145; BP_DIAS 87; BP_DIAS 98; PULSE 89; PULSE 92; RESP 18; TEMP 98.2; TEMP 98.5; O2SAT 20; O2SAT 96
[2016-07-28] MEDS ORDERED: PROPOFOL 200 MG/20 ML AMP IV ONE (13:31)
[2016-07-28] MEDS ORDERED: IOHEXOL 350 MG/ML 100 ML BTL (for RAD DIAG) OTHER ONE (13:36)
[2016-07-28] MEDS ORDERED: DO NOT ADM ANY ANTICOAGULANT DRUGS XX PRN (14:30)
--- NOTE | 2016-07-28 14:30 | RADRPT ---
EXAM DATE/TIME: 07/28/2016 13:39 [facility] COMPARISON: No previous studies available for comparison. INDICATIONS : Choledocolithasis. FLUORO TIME: 0.367 minutes IMAGE COUNT: 2 CONTRAST: Instilled by Ordering Physician MEDICAL HISTORY : None. SURGICAL HISTORY : None. ENCOUNTER: Initial ACUITY: 3 days PAIN SCORE: Non-responsive. LOCATION: ERCP FINDINGS: An ERCP was performed by the ordering physician. The images demonstrate contrast in the common bile duct. Common bile duct does not appear to be dilat ed. CONCLUSION: ERCP as above. see the report by the log data technician for further detail. Barrington Lin MD on July 28, 2016 at 14:28 Board Certified Radiologist. This report was verified electronically.
[2016-07-28 16:00] VITALS: BP 175/96; PULSE 102; RESP 20; TEMP 98.5; O2SAT 93
[2016-07-28] MEDS ORDERED: DICYCLOMINE HCL 20 MG/2 ML VIAL IM ONE (17:30)
[2016-07-28] MEDS ORDERED: SIMETHICONE 125 MG CHEWABLE TAB PO ONE (17:30)
[2016-07-28] MEDS ORDERED: PANTOPRAZOLE SODIUM 40 MG VIAL IV PUSH ONE (17:30)
--- NOTE | 2016-07-28 17:35 | HHI.PR ---
Subjective Remarks Came to see the patient earlier today and she was being taken down to have gastrointestinal procedure done. When I finished seeing another patient on another floor, she still was not done with the procedure. She later was having some upper abdominal and lower chest discomfort. She appeared to have some associated "queasy" stomach feeling also. Objective Vital Signs Date Time Temp Pulse Resp B/P Pulse Ox O2 Delivery O2 Flow Rate FiO2 07/28/16 14:30 97.9 89 14 160/90 94 Nasal Cannula 2 07/28/16 14:15 95 14 156/92 94 Nasal Cannula 2 07/28/16 14:10 98.4 98 14 152/91 94 Nasal Cannula 2 07/28/16 12:00 98.2 92 140/87 20 07/28/16 11:36 16 07/28/16 08:00 98.2 92 20 139/87 94 07/28/16 00:00 98.4 74 20 130/68 92 07/27/16 20:00 98.8 76 20 130/70 94 I/O 07/27/16 07/27/16 07/27/16 07/28/16 07/28/16 07/28/16 06:59 14:59 22:59 06:59 14:59 22:59 Intake Total 580 ml 897 ml 380 ml 0 ml 1321 ml Output Total 600 ml 800 ml 400 ml 1000 ml 10 ml Balance -20 ml 97 ml -20 ml -1000 ml 1311 ml Intake Oral 0 ml 0 ml 0 ml 0 ml 10 ml IV Total 580 ml 897 ml 380 ml 911 ml Other 400 ml Output Urine Total 600 ml 800 ml 400 ml 1000 ml Estimated Blood Loss 10 ml # Voids 0 # Bowel Movements 0 0 0 0 Result Diagram: 07/28/16 0422 07/28/16 0422 Procedures She had ERCP with Sphincterotomy and Balloon Sweep done today by Gastroenterology Consult. Assessment and Plan Assessment and Plan ASSESSMENT 1. Acute Pancreatitis. 2. Intractable Pain. 3. Possible Cholelithiasis-S/P ERCP with Sphincterotomy. 4. Gastroesophageal Reflux Disease. 5. Hypertension. 6. Hyperlipidemia. 7. Advanced Osteoarthritis. 8. Anxiety Disorder. 9. Depression. PLAN 1. Start on Liquid Diet and observe tolerance. 2. Intravenous Proton Pump Inhibitor. 3. Intravenous fluid hydration support. 4. Gastroenterology follows. 5. Intravenous medication for blood pressure control. 6. Follow up laboratory assessment. 7. DVT, PE and PUD prophylaxis. Juan Manuel Lopez MD Jul 28, 2016 17:35
[2016-07-28 20:00] VITALS: BP 169/76; PULSE 110; RESP 22; TEMP 99.4; O2SAT 93
[2016-07-28] MEDS ORDERED: ONDANSETRON HCL 4 MG/2 ML VIAL IVP PRN (20:45)
[2016-07-28] MEDS: HYDROmorphone HCL PF 1 MG/ML VIAL IV PUSH PRN (22:12)
[2016-07-29] VITALS: BP 154/74; PULSE 92; RESP 20; TEMP 98.8; O2SAT 95
[2016-07-29] MEDS: HYDROmorphone HCL PF 1 MG/ML VIAL IV PUSH PRN ×4 (03:22→20:37)
[2016-07-29 04:00] VITALS: BP 151/68; PULSE 100; RESP 22; TEMP 98.4; O2SAT 93
[2016-07-29 04:33] LABS: AUTOMATED NEUTROPHIL # 17.5 TH/MM3 (1.8-7.7); BASOPHIL % 0.1 % (0.0-2.0); HEMATOCRIT 38.1 % (35.0-46.0); HEMO FLAGS DIFF FINAL; LYMPH % 2.6 % (9.0-44.0); LYMPHOCYTE # 0.5 TH/MM3 (1.0-4.8); MEAN CORPUSCULAR HEMOGLOBIN 28.1 PG (27.0-34.0); MONO % 4.2 % (0.0-8.0); NEUT % 93.1 % (16.0-70.0); PLATELET COUNT 209 TH/MM3 (150-450); RED BLOOD COUNT 4.48 MIL/MM3 (4.00-5.30); RED CELL DISTRIBUTION WIDTH 15.3 % (11.6-17.2); WHITE BLOOD COUNT 18.8 TH/MM3 (4.0-11.0)
[2016-07-29 04:49] LABS: BICARBONATE 22.6 MEQ/L (21.0-32.0); MAGNESIUM 1.6 MG/DL (1.5-2.5)
[2016-07-29 08:00] VITALS: BP 120/62; PULSE 109; RESP 20; TEMP 99.6; O2SAT 92
[2016-07-29] MEDS: PANTOPRAZOLE SODIUM 40 MG VIAL IV PUSH SCH (08:26)
[2016-07-29] MEDS: LACTATED RINGER'S 1000 ML INJ 1,000 ML IV SCH ×2 (08:26→20:38)
[2016-07-29] MEDS: SODIUM CHLORIDE 0.9% FLUSH 5 ML FLUSH FLUSH SCH ×2 (08:26→20:37)
--- NOTE | 2016-07-29 11:35 | HHI.PR ---
Subjective Remarks She reports that she is tolerating eating much better today. She has a report of having an elevated temperature earlier today. She was given acetaminophen by the Nurse and is afebrile at this time. She denies any chest pain, nausea or vomiting. Objective Vital Signs Date Time Temp Pulse Resp B/P Pulse Ox O2 Delivery O2 Flow Rate FiO2 07/29/16 09:01 16 07/29/16 08:00 99.6 109 20 120/62 92 07/29/16 04:00 98.4 100 22 151/68 93 07/29/16 00:00 98.8 92 20 154/74 95 07/28/16 20:00 99.4 110 22 169/76 93 07/28/16 16:00 98.5 102 20 175/96 93 07/28/16 14:30 97.9 89 14 160/90 94 Nasal Cannula 2 07/28/16 14:15 95 14 156/92 94 Nasal Cannula 2 07/28/16 14:10 98.4 98 14 152/91 94 Nasal Cannula 2 07/28/16 12:00 98.2 92 140/87 20 07/28/16 12:00 98.5 89 18 145/98 96 07/28/16 11:36 16 I/O 07/28/16 07/28/16 07/28/16 07/29/16 07/29/16 07/29/16 07:00 15:00 23:00 07:00 15:00 23:00 Intake Total 0 ml 1321 ml 220 ml 220 ml Output Total 1000 ml 910 ml 400 ml 850 ml Balance -1000 ml 411 ml -180 ml -630 ml Intake Oral 0 ml 10 ml 220 ml 220 ml IV Total 911 ml Other 400 ml Output Urine Total 1000 ml 900 ml 400 ml 850 ml Estimated Blood Loss 10 ml # Voids 0 # Bowel Movements 0 0 0 0 Result Diagram: 07/29/16 0352 07/29/16 0352 Other Results Laboratory Tests Test 07/26/16 07/27/16 07/28/16 07/29/16 20:20 05:07 04:22 03:52 White Blood Count 16.5 TH/MM3 17.1 TH/MM3 18.8 TH/MM3 (4.0-11.0) (4.0-11.0) (4.0-11.0) Neutrophils (%) (Auto) 92.4 % 88.0 % 79.3 % 93.1 % (16.0-70.0) (16.0-70.0) (16.0-70.0) (16.0-70.0) Lymphocytes (%) (Auto) 2.7 % 6.9 % 2.6 % (9.0-44.0) (9.0-44.0) (9.0-44.0) Neutrophils # (Auto) 15.3 TH/MM3 15.0 TH/MM3 17.5 TH/MM3 (1.8-7.7) (1.8-7.7) (1.8-7.7) Lymphocytes # (Auto) 0.5 TH/MM3 0.9 TH/MM3 0.5 TH/MM3 (1.0-4.8) (1.0-4.8) (1.0-4.8) Estimat Glomerular Filtration 58 ML/MIN (>89) 61 ML/MIN (>89) 78 ML/MIN (>89) 50 ML/MIN (>89) Rate Random Glucose 117 MG/DL 113 MG/DL 68 MG/DL 164 MG/DL (74-106) (74-106) (74-106) (74-106) Total Bilirubin 2.0 MG/DL 2.9 MG/DL 3.0 MG/DL 2.0 MG/DL (0.2-1.0) (0.2-1.0) (0.2-1.0) (0.2-1.0) Aspartate Amino Transf 216 U/L (15-37) 179 U/L (15-37) 103 U/L (15-37) 89 U/L ( 15-37) (AST/SGOT) Alanine Aminotransferase 215 U/L (10-53) 190 U/L (10-53) 142 U/L (10-53) 126 U/ L (10-53) (ALT/SGPT) Alkaline Phosphatase 356 U/L 311 U/L 318 U/L 328 U/L (45-117) (45-117) (45-117) (45-117) Total Creatine Kinase 229 U/L (26-192) Troponin I LESS THAN 0.02 NG/ML (0.02-0.05) Total Protein 8.5 GM/DL (6.4-8.2) Lipase GREATER THAN 8244 U/L 711 U/L 79385 U/L (73-393) (73-393) (73-393) Potassium Level 3.0 MEQ/L 3.0 MEQ/L (3.5-5.1) (3.5-5.1) Direct Bilirubin 1.6 MG/DL 1.0 MG/DL (0.0-0.2) (0.0-0.2) Indirect Bilirubin 1.4 MG/DL 1.0 MG/DL (0.0-0.8) (0.0-0.8) Albumin 3.3 GM/DL 3.2 GM/DL (3.4-5.0) (3.4-5.0) Creatinine 1.06 MG/DL (0.50-1.00) Objective Remarks GENERAL: Alert and well oriented. She reports felling much better today, but still with abdominal discomfort. SKIN: Warm and dry. HEAD: Normocephalic. EYES: No scleral icterus. No injection or drainage. NECK: Supple, trachea midline. No JVD or lymphadenopathy. CARDIOVASCULAR: Regular rate and rhythm without murmurs, gallops, or rubs. RESPIRATORY: Breath sounds equal bilaterally. No accessory muscle use. GASTROINTESTINAL: Abdomen soft with tenderness in the upper right and central areas. It is nondistended. MUSCULOSKELETAL: Free range of motion. No cyanosis, or edema. BACK: Nontender without obvious deformity. No CVA tenderness. Assessment and Plan Assessment and Plan ASSESSMENT 1. Acute Pancreatitis. 2. S/P ERCP with Sphincterotomy 3. Cholelithiasis. 4. Gastroesophageal Reflux Disease. 5. Hypokalemia and Hypomagnesemia. 6. Hypertension. 7. Hyperlipidemia. 8. Advanced Osteoarthritis. 9. Anxiety Disorder. 10. Depression. PLAN 1. Continue on Liquid Diet. 2. Intravenous Proton Pump Inhibitor. 3. Intravenous fluid hydration support. 4. Gastroenterology follows. 5. Potassium and Magnesium repletion. 6. Follow up laboratory assessment. 7. DVT, PE and PUD prophylaxis. Juan Manuel Lopez MD Jul 29, 2016 11:35
[2016-07-29] MEDS ORDERED: POTASSIUM CHLORIDE 20 MEQ CONTROLLED RELEASE TAB PO ONE ×2 (11:45→16:00)
[2016-07-29] MEDS: ACETAMINOPHEN 325 MG TAB PO PRN ×2 (11:48→22:13)
[2016-07-29] MEDS: MAGNESIUM SULFATE 1 GM PREMIX 100 ML IV SCH ×2 (11:48→11:49)
[2016-07-29 12:00] VITALS: BP 105/64; PULSE 124; RESP 20; TEMP 101.6; O2SAT 91
[2016-07-29] MEDS: metroNIDAZOLE 500 MG INJ 100 ML IV SCH ×2 (12:50→20:37)
--- NOTE | 2016-07-29 15:37 | HHI.GIFU ---
Subjective Remarks Tolerating diet well, minimal abdominal pain today. Objective Vitals I&O Vital Signs Date Time Temp Pulse Resp B/P Pulse Ox O2 Delivery O2 Flow Rate FiO2 07/29/16 12:00 101.6 124 20 105/64 91 07/29/16 09:01 16 07/29/16 08:00 99.6 109 20 120/62 92 07/29/16 04:00 98.4 100 22 151/68 93 07/29/16 00:00 98.8 92 20 154/74 95 07/28/16 20:00 99.4 110 22 169/76 93 07/28/16 16:00 98.5 102 20 175/96 93 I/O 07/28/16 07/28/16 07/28/16 07/29/16 07/29/16 07/29/16 06:59 14:59 22:59 06:59 14:59 22:59 Intake Total 0 ml 1321 ml 220 ml 220 ml 2551 ml Output Total 1000 ml 910 ml 400 ml 850 ml 400 ml Balance -1000 ml 411 ml -180 ml -630 ml 2151 ml Intake Oral 0 ml 10 ml 220 ml 220 ml 480 ml IV Total 911 ml 2071 ml Other 400 ml Output Urine Total 1000 ml 900 ml 400 ml 850 ml 400 ml Estimated Blood Loss 10 ml # Voids 0 # Bowel Movements 0 0 0 0 0 Laboratory Laboratory Tests Test 07/29/16 03:52 White Blood Count 18.8 Red Blood Count 4.48 Hemoglobin 12.6 Hematocrit 38.1 Mean Corpuscular Volume 85.0 Mean Corpuscular Hemoglobin 28.1 Mean Corpuscular Hemoglobin 33.0 Concent Red Cell Distribution Width 15.3 Platelet Count 209 Mean Platelet Volume 8.3 Neutrophils (%) (Auto) 93.1 Lymphocytes (%) (Auto) 2.6 Monocytes (%) (Auto) 4.2 Eosinophils (%) (Auto) 0.0 Basophils (%) (Auto) 0.1 Neutrophils # (Auto) 17.5 Lymphocytes # (Auto) 0.5 Monocytes # (Auto) 0.8 Eosinophils # (Auto) 0.0 Basophils # (Auto) 0.0 CBC Comment DIFF FINAL Differential Comment Sodium Level 140 Potassium Level 3.0 Chloride Level 103 Carbon Dioxide Level 22.6 Anion Gap 14 Blood Urea Nitrogen 13 Creatinine 1.06 Estimat Glomerular Filtration 50 Rate Random Glucose 164 Calcium Level 8.9 Magnesium Level 1.6 Total Bilirubin 2.0 Direct Bilirubin 1.0 Indirect Bilirubin 1.0 Aspartate Amino Transf 89 (AST/SGOT) Alanine Aminotransferase 126 (ALT/SGPT) Alkaline Phosphatase 328 Total Protein 7.2 Albumin 3.2 Physical Exam HEENT: Pupils round and reactive to light; normocephalic; atraumatic; no jaundice. Throat is clear. NECK: Neck is supple, no JVD, no lymphadenopathy. CHEST: Chest is clear to auscultation and percussion. CARDIAC: Regular rate and rhythm with no murmur gallop or rubs. ABDOMEN: Soft, nondistended, nontender; no hepatosplenomegaly; bowel sounds are present in all four quadrants. EXTREMITIES: No clubbing, cyanosis, or edema. SKIN: Normal; no rash; no jaundice. EDI MANAGER: No focal deficits; alert and oriented times three. Assessment and Plan Plan - S/P ERC with sphincterotomy and stones extractions, tolerating diet well, Bili decreasing - Acute Cholecystitis as seen by US and clinically - Acute pancreatitis- resolving: Severe abdominal pain on off for the past month , worsening in severity for the last week she has been under a lot of stress at home. Hgb is 13.9--->12.4, lipase was > 61524, elevated LFTs and bilirubin, WBC 17. She denies alcohol intake. US ---> Enlarged echogenic pancreas raising possibility of pancreatitis. 2. Distended gallbladder with gallbladder wall thickening with stones not being seen. The common bile duct is not dilated. CT--->. 1.The gallbladder is at the upper limits of normal in size and contains areas of increased echogenicity which may represent small gallstones and/or sludge. There is no definite wall thickening on the CT and is no inflammatory change. 2. There is no evidence of biliary obstruction. 3. The pancreas appears unremarkable with no focal mass or ductal dilatation. , MRCP showed possible stones, - Elevated LFTs/bili, trending down, imaging as above, finding concerning for gastric ulcer, biliary obstruction - Black stools/ Heme (+) stools; EGD unremarkable for upper GI source. daily use of Meloxicam, hgb stable, slight drop, continue to have dark stools - Leukocytosis- still elevated - HTN, arthritis, hyperlipidemia, sleep apnea per attending Plan: - JUAN CARLOS - Consult GS for Cholecystectomy - LFTs, lipase in the am - Cont. hydration - Pain control - Supportive care Lissy Lezama MD Jul 29, 2016 15:37
[2016-07-29 16:00] VITALS: BP 104/52; PULSE 94; RESP 16; TEMP 98.2; O2SAT 93
[2016-07-29 20:00] VITALS: BP 123/62; PULSE 109; RESP 18; TEMP 98.6; O2SAT 93
[2016-07-30] VITALS: BP 117/58; PULSE 89; RESP 18; TEMP 97.8; O2SAT 93
[2016-07-30] MEDS: HYDROmorphone HCL PF 1 MG/ML VIAL IV PUSH PRN ×3 (03:23→21:50)
[2016-07-30] MEDS: LACTATED RINGER'S 1000 ML INJ 1,000 ML IV SCH ×2 (03:24→17:12)
[2016-07-30] MEDS: metroNIDAZOLE 500 MG INJ 100 ML IV SCH ×3 (03:24→20:04)
[2016-07-30 05:08] LABS: BASOPHIL % 0.1 % (0.0-2.0); EOSINOPHIL % 0.1 % (0.0-4.0); HEMO FLAGS DIFF FINAL; LYMPH % 6.7 % (9.0-44.0); LYMPHOCYTE # 1.1 TH/MM3 (1.0-4.8); MEAN CELL VOLUME 85.1 FL (80.0-100.0); MEAN CORPUSCULAR HEMOGLOBIN 28.2 PG (27.0-34.0); MEAN CORPUSCULAR HGB CONC 33.1 % (32.0-36.0); MONO % 3.9 % (0.0-8.0); NEUT % 89.2 % (16.0-70.0); PLATELET COUNT 179 TH/MM3 (150-450); RED BLOOD COUNT 3.76 MIL/MM3 (4.00-5.30); RED CELL DISTRIBUTION WIDTH 15.3 % (11.6-17.2); WHITE BLOOD COUNT 16.8 TH/MM3 (4.0-11.0)
[2016-07-30] MEDS: ACETAMINOPHEN 325 MG TAB PO PRN ×2 (05:19→09:24)
[2016-07-30 05:39] LABS: BICARBONATE 26.5 MEQ/L (21.0-32.0); MAGNESIUM 2.3 MG/DL (1.5-2.5); POTASSIUM 3.7 MEQ/L (3.5-5.1)
[2016-07-30 08:00] VITALS: BP 105/59; PULSE 92; RESP 22; TEMP 97.7; O2SAT 91
[2016-07-30] MEDS: SODIUM CHLORIDE 0.9% FLUSH 5 ML FLUSH FLUSH SCH ×2 (09:00→20:05)
--- NOTE | 2016-07-30 09:42 | HHI.GIFU ---
Subjective Remarks Minimal abdominal pain, tolerating diet well, no fever or chills. Objective Vitals I&O Vital Signs Date Time Temp Pulse Resp B/P Pulse Ox O2 Delivery O2 Flow Rate FiO2 07/30/16 08:00 97.7 92 22 105/59 91 07/30/16 00:00 97.8 89 18 117/58 93 07/29/16 20:00 98.6 109 18 123/62 93 07/29/16 16:36 18 07/29/16 16:00 98.2 94 16 104/52 93 07/29/16 12:00 101.6 124 20 105/64 91 I/O 07/29/16 07/29/16 07/29/16 07/30/16 07/30/16 07/30/16 07:00 15:00 23:00 07:00 15:00 23:00 Intake Total 220 ml 2551 ml 240 ml 480 ml Output Total 850 ml 400 ml 300 ml 700 ml Balance -630 ml 2151 ml -60 ml -220 ml Intake Oral 220 ml 480 ml 240 ml 480 ml IV Total 2071 ml Output Urine Total 850 ml 400 ml 300 ml 700 ml # Bowel Movements 0 0 Laboratory Laboratory Tests Test 07/30/16 03:53 White Blood Count 16.8 Red Blood Count 3.76 Hemoglobin 10.6 Hematocrit 32.0 Mean Corpuscular Volume 85.1 Mean Corpuscular Hemoglobin 28.2 Mean Corpuscular Hemoglobin 33.1 Concent Red Cell Distribution Width 15.3 Platelet Count 179 Mean Platelet Volume 8.4 Neutrophils (%) (Auto) 89.2 Lymphocytes (%) (Auto) 6.7 Monocytes (%) (Auto) 3.9 Eosinophils (%) (Auto) 0.1 Basophils (%) (Auto) 0.1 Neutrophils # (Auto) 15.0 Lymphocytes # (Auto) 1.1 Monocytes # (Auto) 0.7 Eosinophils # (Auto) 0.0 Basophils # (Auto) 0.0 CBC Comment DIFF FINAL Differential Comment Sodium Level 137 Potassium Level 3.7 Chloride Level 102 Carbon Dioxide Level 26.5 Anion Gap 9 Blood Urea Nitrogen 18 Creatinine 1.08 Estimat Glomerular Filtration 49 Rate Random Glucose 93 Calcium Level 8.4 Magnesium Level 2.3 Physical Exam NECK: Neck is supple, no JVD, no lymphadenopathy. CHEST: Chest is clear to auscultation and percussion. CARDIAC: Regular rate and rhythm with no murmur gallop or rubs. ABDOMEN: Soft, nondistended, nontender; no hepatosplenomegaly; bowel sounds are present in all four quadrants. EXTREMITIES: No clubbing, cyanosis, or edema. SKIN: Normal; no rash; no jaundice. Assessment and Plan Plan - S/P ERC with sphincterotomy and stones extractions, tolerating diet well, Bili decreasing - Acute Cholecystitis as seen by US and clinically - Acute pancreatitis- resolving: Severe abdominal pain on off for the past month , worsening in severity for the last week she has been under a lot of stress at home. Hgb is 13.9--->12.4, lipase was > 59405, elevated LFTs and bilirubin, WBC 17. She denies alcohol intake. US ---> Enlarged echogenic pancreas raising possibility of pancreatitis. 2. Distended gallbladder with gallbladder wall thickening with stones not being seen. The common bile duct is not dilated. CT--->. 1.The gallbladder is at the upper limits of normal in size and contains areas of increased echogenicity which may represent small gallstones and/or sludge. There is no definite wall thickening on the CT and is no inflammatory change. 2. There is no evidence of biliary obstruction. 3. The pancreas appears unremarkable with no focal mass or ductal dilatation. , MRCP showed possible stones, - Elevated LFTs/bili, trending down, imaging as above, finding concerning for gastric ulcer, biliary obstruction - Black stools/ Heme (+) stools; EGD unremarkable for upper GI source. daily use of Meloxicam, hgb stable, slight drop, continue to have dark stools - Leukocytosis- still elevated - HTN, arthritis, hyperlipidemia, sleep apnea per attending Plan: - JUAN CARLOS - Consult GS for Cholecystectomy - LFTs, lipase in the am - Cont. hydration - Pain control - Supportive care Lissy Lezama MD Jul 30, 2016 09:42
[2016-07-30] MEDS: PANTOPRAZOLE SODIUM 40 MG VIAL IV PUSH SCH (11:39)
[2016-07-30 12:00] VITALS: BP 118/65; PULSE 89; RESP 20; TEMP 99; O2SAT 98
--- NOTE | 2016-07-30 13:56 | HHI.PR ---
Subjective Remarks She was just seen by General Surgery and I discussed the plans for her regarding surgery. She denies any chest pain, nausea or vomiting and appears to be tolerating her oral intake well. Objective Vital Signs Date Time Temp Pulse Resp B/P Pulse Ox O2 Delivery O2 Flow Rate FiO2 07/30/16 12:00 99.0 89 20 118/65 98 07/30/16 08:00 97.7 92 22 105/59 91 07/30/16 00:00 97.8 89 18 117/58 93 07/29/16 20:00 98.6 109 18 123/62 93 07/29/16 16:36 18 07/29/16 16:00 98.2 94 16 104/52 93 I/O 07/29/16 07/29/16 07/29/16 07/30/16 07/30/16 07/30/16 07:00 15:00 23:00 07:00 15:00 23:00 Intake Total 220 ml 2551 ml 240 ml 480 ml Output Total 850 ml 400 ml 300 ml 700 ml Balance -630 ml 2151 ml -60 ml -220 ml Intake Oral 220 ml 480 ml 240 ml 480 ml IV Total 2071 ml Output Urine Total 850 ml 400 ml 300 ml 700 ml # Bowel Movements 0 0 Result Diagram: 07/30/16 0353 07/30/16 035 Objective Remarks GENERAL: Alert and well oriented. She reports no new abdominal discomfort. SKIN: Warm and dry. HEAD: Normocephalic. EYES: No scleral icterus. No injection or drainage. NECK: Supple, trachea midline. No JVD or lymphadenopathy. CARDIOVASCULAR: Regular rate and rhythm without murmurs, gallops, or rubs. RESPIRATORY: Breath sounds equal bilaterally. No accessory muscle use. GASTROINTESTINAL: Abdomen soft with less tenderness in the upper right and central areas. It is nondistended. MUSCULOSKELETAL: Free range of motion. No cyanosis, or edema. BACK: Nontender without obvious deformity. No CVA tenderness. Assessment and Plan Assessment and Plan ASSESSMENT 1. Acute Pancreatitis. 2. S/P ERCP with Sphincterotomy 3. Cholecystitis with Cholelithiasis. 4. Gastroesophageal Reflux Disease. 5. Hypokalemia and Hypomagnesemia. 6. Hypertension. 7. Hyperlipidemia. 8. Advanced Osteoarthritis. 9. Anxiety Disorder. 10. Depression. PLAN 1. Continue to monitor her dietary tolerance. 2. Intravenous Proton Pump Inhibitor. 3. Intravenous fluid hydration support. 4. Gastroenterology follows. 5. Consultation to General Surgery done. 6. Follow up laboratory assessment. 7. DVT, PE and PUD prophylaxis. Juan Manuel Lopez MD Jul 30, 2016 13:56
[2016-07-30 16:00] VITALS: BP 114/64; PULSE 88; RESP 19; TEMP 98.8; O2SAT 96
[2016-07-30 20:00] VITALS: BP 155/72; PULSE 109; RESP 18; TEMP 99.7; O2SAT 93
--- NOTE | 2016-07-30 20:44 | MB ---
cc: JANICE MATTHEWS M.D. DATE OF CONSULTATION 07/30/2016 REASON FOR CONSULTATION Gallstone pancreatitis. HISTORY OF PRESENT ILLNESS The patient is a 80-year-old female who developed pain in the upper abdomen with radiation through to the back and was admitted on 07/27. The patient has multiple other medical problems and is cared for by Dr. Juan Manuel Lopez. The patient was obtained at that time with acute pancreatitis and was given supportive care. The patient was seen by GI service and underwent ERCP with sphincterotomy and stone extraction. She had also undergone imaging with CT of the abdomen and pelvis demonstrating gallbladder at upper limits of normal size with areas of echogenicity. Gallbladder ultrasound performed on 07/26 demonstrates a large echogenic pancreas and a distended gallbladder with gallbladder wall thickening. The common bile duct was not dilated. Cholangiopancreatography performed on 07/27 demonstrated probable stones and sludge in the fundus of the gallbladder. Common duct stones were suggested as well. PAST MEDICAL HISTORY Significant for no known allergies, 1. Hypertension, 2. Hyperlipidemia, 3. Osteoarthritis, 4. GE reflux disease, 5. Obstructive sleep apnea syndrome for which the patient uses a C-PAP machine 6. Anxiety disorder, 7. Depression, 8. Osteopenia 9. Colonic polyps. PAST SURGICAL HISTORY 1. Bilateral carpal tunnel release, 2. Bilateral total knee replacement 3. Left total hip replacement 4. Left salivary gland tumor resection, 5. Total abdominal hysterectomy laparoscopically 6. Cardiac catheterization 7. Colonoscopy. FAMILY HISTORY Noncontributory. She has four children in good health. The patient currently lives alone. She does not smoke or drink and she does not use any other drugs. PHYSICAL EXAMINATION GENERAL: An obese female in no acute distress. VITAL SIGNS: BP 114/64, pulse 88, respirations 19, temperature 98.8, 96% saturation on 2 liters nasal cannula. HEENT: Sclerae anicteric. Pupils are reactive. NECK: Supple. CHEST: Clear to auscultation. CARDIAC: Regular rate and rhythm. ABDOMEN: Soft with minimal tenderness in the epigastrium to deep palpation. There is no guarding or rebound. EXTREMITIES: Pulses are present. NEUROLOGIC: Exam is nonfocal. LABORATORY DATA Laboratory values demonstrate WBCs of 16.8 currently, platelets are 179,000, hemoglobin/hematocrit is 10.6 and 32.0. Chemistries demonstrate total bilirubin of 2.0 which is down from yesterday with AST and ALT of 89 and 126 which is also decreased. Alkaline phosphatase is elevated at 328 still. Lipase on 07/27 was 8244 and was 711 on 07/28. ASSESSMENT Gallstone induced pancreatitis with common duct stones cleared by GI service. PLAN We will allow pancreatitis to subside further for the next 24 hours. I have discussed this with the patient and Dr. Lopez; she is scheduled for surgery first thing Monday morning on 08/01/2016. I have discussed risks of surgery with the patient including but not limited to bleeding, infection, bile duct injury, bowel injury, possible need for postoperative ERCP, possible need for drainage, possible need for endoscopy, possible need for reoperation. I have discussed remedies, consequences, alternatives and convalescence; she vocalizes understanding and agrees to proceed. MD BELLE Abrams/ /7:44 PM /8:28 PM
[2016-07-31] VITALS: BP 135/74; PULSE 101; RESP 18; TEMP 98.4; O2SAT 94
[2016-07-31] MEDS: LACTATED RINGER'S 1000 ML INJ 1,000 ML IV SCH ×3 (03:07→19:39)
[2016-07-31] MEDS: HYDROmorphone HCL PF 1 MG/ML VIAL IV PUSH PRN ×5 (03:07→22:45)
[2016-07-31] MEDS: ACETAMINOPHEN 325 MG TAB PO PRN ×2 (05:04→19:39)
[2016-07-31] MEDS: metroNIDAZOLE 500 MG INJ 100 ML IV SCH ×3 (05:04→19:39)
[2016-07-31 07:19] LABS: BASOPHIL % 0.1 % (0.0-2.0); HEMATOCRIT 30.8 % (35.0-46.0); HEMO FLAGS DIFF FINAL; INDIRECT BILIRUBIN 0.4 MG/DL (0.0-0.8); LYMPH % 6.7 % (9.0-44.0); MEAN CELL VOLUME 84.7 FL (80.0-100.0); MONO % 5.7 % (0.0-8.0); NEUT % 87.5 % (16.0-70.0); PLATELET COUNT 202 TH/MM3 (150-450); RED BLOOD COUNT 3.63 MIL/MM3 (4.00-5.30); RED CELL DISTRIBUTION WIDTH 15.4 % (11.6-17.2); TOTAL BILIRUBIN ADULT 0.7 MG/DL (0.2-1.0); WHITE BLOOD COUNT 14.9 TH/MM3 (4.0-11.0)
[2016-07-31 08:00] VITALS: BP 128/61; PULSE 93; RESP 20; TEMP 98.8; O2SAT 95
[2016-07-31] MEDS: PANTOPRAZOLE SODIUM 40 MG VIAL IV PUSH SCH (09:43)
[2016-07-31] MEDS: SODIUM CHLORIDE 0.9% FLUSH 5 ML FLUSH FLUSH SCH ×2 (09:44→19:38)
--- NOTE | 2016-07-31 09:46 | HHI.PR ---
Subjective Subjective Notes still with some epigastric pain Objective Vitals/I&O Vital Signs Date Time Temp Pulse Resp B/P Pulse Ox O2 Delivery O2 Flow Rate FiO2 07/31/16 08:00 98.8 93 20 128/61 95 07/28/16 14:30 Nasal Cannula 2 Labs Laboratory Tests Test 07/31/16 05:51 White Blood Count 14.9 Red Blood Count 3.63 Hemoglobin 10.2 Hematocrit 30.8 Mean Corpuscular Volume 84.7 Mean Corpuscular Hemoglobin 28.0 Mean Corpuscular Hemoglobin 33.0 Concent Red Cell Distribution Width 15.4 Platelet Count 202 Mean Platelet Volume 8.2 Neutrophils (%) (Auto) 87.5 Lymphocytes (%) (Auto) 6.7 Monocytes (%) (Auto) 5.7 Eosinophils (%) (Auto) 0.0 Basophils (%) (Auto) 0.1 Neutrophils # (Auto) 13.0 Lymphocytes # (Auto) 1.0 Monocytes # (Auto) 0.8 Eosinophils # (Auto) 0.0 Basophils # (Auto) 0.0 CBC Comment DIFF FINAL Differential Comment Total Bilirubin 0.7 Direct Bilirubin 0.3 Indirect Bilirubin 0.4 Aspartate Amino Transf 17 (AST/SGOT) Alanine Aminotransferase 52 (ALT/SGPT) Alkaline Phosphatase 204 Total Protein 6.1 Albumin 2.3 Amylase Level 218 Cardiovascular: Regular Lungs: Clear Abdomen: Non-distended, Non-tender Extremities: Perfused A/P Assessment and Plan 80yo female with GS pancreatitis, stable. - OOB, clears - recheck labs in AM, if pain resolving and labs ok will proceed with lauren reddy Monday Kingsley Jacobs MD Jul 31, 2016 09:46
--- NOTE | 2016-07-31 10:58 | HHI.GIFU ---
Subjective Remarks Still complaining of minimal abdominal pain, tolerating diet well. Objective Vitals I&O Vital Signs Date Time Temp Pulse Resp B/P Pulse Ox O2 Delivery O2 Flow Rate FiO2 07/31/16 08:00 98.8 93 20 128/61 95 07/31/16 00:00 98.4 101 18 135/74 94 07/30/16 20:00 99.7 109 18 155/72 93 07/30/16 16:00 98.8 88 19 114/64 96 07/30/16 12:00 99.0 89 20 118/65 98 I/O 07/30/16 07/30/16 07/30/16 07/31/16 07/31/16 07/31/16 07:00 15:00 23:00 07:00 15:00 23:00 Intake Total 480 ml 970 ml 775 ml 1369 ml 120 ml Output Total 700 ml 1200 ml 1000 ml 750 ml Balance -220 ml -230 ml -225 ml 619 ml 120 ml Intake Oral 480 ml 480 ml 240 ml 480 ml 120 ml IV Total 490 ml 535 ml 889 ml Output Urine Total 700 ml 1200 ml 1000 ml 750 ml Laboratory Laboratory Tests Test 07/31/16 05:51 White Blood Count 14.9 Red Blood Count 3.63 Hemoglobin 10.2 Hematocrit 30.8 Mean Corpuscular Volume 84.7 Mean Corpuscular Hemoglobin 28.0 Mean Corpuscular Hemoglobin 33.0 Concent Red Cell Distribution Width 15.4 Platelet Count 202 Mean Platelet Volume 8.2 Neutrophils (%) (Auto) 87.5 Lymphocytes (%) (Auto) 6.7 Monocytes (%) (Auto) 5.7 Eosinophils (%) (Auto) 0.0 Basophils (%) (Auto) 0.1 Neutrophils # (Auto) 13.0 Lymphocytes # (Auto) 1.0 Monocytes # (Auto) 0.8 Eosinophils # (Auto) 0.0 Basophils # (Auto) 0.0 CBC Comment DIFF FINAL Differential Comment Total Bilirubin 0.7 Direct Bilirubin 0.3 Indirect Bilirubin 0.4 Aspartate Amino Transf 17 (AST/SGOT) Alanine Aminotransferase 52 (ALT/SGPT) Alkaline Phosphatase 204 Total Protein 6.1 Albumin 2.3 Amylase Level 218 Physical Exam NECK: Neck is supple, no JVD, no lymphadenopathy. CHEST: Chest is clear to auscultation and percussion. CARDIAC: Regular rate and rhythm with no murmur gallop or rubs. ABDOMEN: Soft, nondistended, nontender; no hepatosplenomegaly; bowel sounds are present in all four quadrants. EXTREMITIES: No clubbing, cyanosis, or edema. SKIN: Normal; no rash; no jaundice. Assessment and Plan Plan - S/P ERC with sphincterotomy and stones extractions, tolerating diet well, LFT' s normalized - Acute Cholecystitis as seen by US and clinically - Acute pancreatitis- resolving: Severe abdominal pain on off for the past month , worsening in severity for the last week she has been under a lot of stress at home. Hgb is 13.9--->12.4, lipase was > 51204, elevated LFTs and bilirubin, WBC 17. She denies alcohol intake. US ---> Enlarged echogenic pancreas raising possibility of pancreatitis. 2. Distended gallbladder with gallbladder wall thickening with stones not being seen. The common bile duct is not dilated. CT--->. 1.The gallbladder is at the upper limits of normal in size and contains areas of increased echogenicity which may represent small gallstones and/or sludge. There is no definite wall thickening on the CT and is no inflammatory change. 2. There is no evidence of biliary obstruction. 3. The pancreas appears unremarkable with no focal mass or ductal dilatation. , MRCP showed possible stones, - Elevated LFTs/bili, trending down, imaging as above, finding concerning for gastric ulcer, biliary obstruction - Black stools/ Heme (+) stools; EGD unremarkable for upper GI source. daily use of Meloxicam, hgb stable, slight drop, continue to have dark stools - Leukocytosis- still elevated - HTN, arthritis, hyperlipidemia, sleep apnea per attending Plan: - JUAN CARLOS - Cholecystectomy scheduled in AM - Cont. hydration - Pain control - Supportive care - Stable from GI point of view, will sign off, please notify us if needed. Lissy Lezama MD Jul 31, 2016 10:58
[2016-07-31 11:32] VITALS: BP 134/63; PULSE 109; RESP 20; TEMP 98.4; O2SAT 95
[2016-07-31 16:00] VITALS: BP 164/85; PULSE 107; RESP 17; TEMP 98.4; O2SAT 95
--- NOTE | 2016-07-31 17:20 | HHI.PR ---
Subjective Remarks Follow up visit was done by General Surgery with plans for her surgery to be tomorrow. She denies any chest pain, nausea or vomiting and appears to be tolerating her oral intake well. Objective Vital Signs Date Time Temp Pulse Resp B/P Pulse Ox O2 Delivery O2 Flow Rate FiO2 07/31/16 16:00 98.4 107 17 164/85 95 07/31/16 11:32 98.4 109 20 134/63 95 07/31/16 08:00 98.8 93 20 128/61 95 07/31/16 00:00 98.4 101 18 135/74 94 07/30/16 20:00 99.7 109 18 155/72 93 I/O 07/30/16 07/30/16 07/30/16 07/31/16 07/31/16 07/31/16 07:00 15:00 23:00 07:00 15:00 23:00 Intake Total 480 ml 970 ml 775 ml 1369 ml 880 ml Output Total 700 ml 1200 ml 1000 ml 750 ml 1200 ml Balance -220 ml -230 ml -225 ml 619 ml -320 ml Intake Oral 480 ml 480 ml 240 ml 480 ml 880 ml IV Total 490 ml 535 ml 889 ml Output Urine Total 700 ml 1200 ml 1000 ml 750 ml 1200 ml # Bowel Movements 0 Result Diagram: 07/31/16 0551 07/30/16 0353 Objective Remarks GENERAL: Alert and well oriented. She reports no new abdominal discomfort, but still has some. SKIN: Warm and dry. HEAD: Normocephalic. EYES: No scleral icterus. No injection or drainage. NECK: Supple, trachea midline. No JVD or lymphadenopathy. CARDIOVASCULAR: Regular rate and rhythm without murmurs, gallops, or rubs. RESPIRATORY: Breath sounds equal bilaterally. No accessory muscle use. GASTROINTESTINAL: Abdomen soft with less tenderness in the upper right and central areas. It is nondistended. MUSCULOSKELETAL: Free range of motion. No cyanosis, or edema. BACK: Nontender without obvious deformity. No CVA tenderness. Assessment and Plan Assessment and Plan ASSESSMENT 1. Acute Pancreatitis. 2. S/P ERCP with Sphincterotomy 3. Cholecystitis with Cholelithiasis. 4. Gastroesophageal Reflux Disease. 5. Hypokalemia and Hypomagnesemia. 6. Hypertension. 7. Hyperlipidemia. 8. Advanced Osteoarthritis. 9. Anxiety Disorder. 10. Depression. PLAN 1. Continue to monitor her dietary tolerance. 2. Intravenous Proton Pump Inhibitor. 3. Intravenous fluid hydration support. 4. Gastroenterology follows. 5. General Surgery plans for surgery tomorrow. 6. Follow up laboratory assessment. 7. DVT, PE and PUD prophylaxis. Juan Manuel Lopez MD Jul 31, 2016 17:20
[2016-07-31 20:00] VITALS: BP 137/82; PULSE 108; RESP 22; TEMP 99.2; O2SAT 93
[2016-08-01] VITALS: BP 141/91; PULSE 103; RESP 22; TEMP 97.1; O2SAT 92
[2016-08-01] MEDS: HYDROmorphone HCL PF 1 MG/ML VIAL IV PUSH PRN (02:58)
[2016-08-01] MEDS: metroNIDAZOLE 500 MG INJ 100 ML IV SCH ×4 (05:35→20:09)
[2016-08-01] MEDS: LACTATED RINGER'S 1000 ML INJ 1,000 ML IV SCH ×3 (05:37→20:09)
[2016-08-01 06:06] LABS: HEMATOCRIT 36.6 % (35.0-46.0); MEAN CELL VOLUME 85.9 FL (80.0-100.0); MEAN CORPUSCULAR HEMOGLOBIN 28.7 PG (27.0-34.0); MEAN CORPUSCULAR HGB CONC 33.4 % (32.0-36.0); PLATELET COUNT 268 TH/MM3 (150-450); RED BLOOD COUNT 4.26 MIL/MM3 (4.00-5.30); RED CELL DISTRIBUTION WIDTH 15.3 % (11.6-17.2); REVIEW FLAG FINAL
[2016-08-01 06:36] LABS: ALKALINE PHOSPHATASE 230 U/L (45-117); ALT (GPT) 50 U/L (10-53); ANION GAP 9 MEQ/L (5-15); AST (GOT) 17 U/L (15-37); BICARBONATE 28.2 MEQ/L (21.0-32.0); BLOOD UREA NITROGEN 6 MG/DL (7-18); CHLORIDE 100 MEQ/L (98-107); GLOMERULAR FILTRATION RATE 76 ML/MIN (>89); POTASSIUM 3.4 MEQ/L (3.5-5.1); SODIUM (NA) 137 MEQ/L (136-145); TOTAL BILIRUBIN ADULT 0.7 MG/DL (0.2-1.0)
[2016-08-01] MEDS ORDERED: DEXAMETHASONE SOD PHOS 4 MG/ML VIAL ONE (07:02)
[2016-08-01] MEDS ORDERED: ACETAMINOPHEN 1000 MG/100 ML VIAL IV ONE ×2 (07:02→08:11)
[2016-08-01] MEDS ORDERED: BUPIVACAINE/EPINEPHRINE 0.25% PF 30 ML VIAL ONE (07:13)
[2016-08-01] MEDS: PANTOPRAZOLE SODIUM 40 MG VIAL IV PUSH SCH (07:17)
[2016-08-01] MEDS: SODIUM CHLORIDE 0.9% FLUSH 5 ML FLUSH FLUSH SCH ×2 (07:17→20:08)
[2016-08-01] MEDS ORDERED: ONDANSETRON HCL 4 MG/2 ML VIAL ONE (07:29)
[2016-08-01] MEDS ORDERED: FAMOTIDINE 20 MG/2 ML VIAL ONE (07:29)
[2016-08-01] MEDS ORDERED: ceFAZolin INJ 1,000 MG VIAL ONE (07:44)
[2016-08-01 08:00] VITALS: BP 152/89; PULSE 102; RESP 24; TEMP 99.1; O2SAT 93
[2016-08-01] MEDS ORDERED: DICLOFENAC SODIUM 37.5 MG/ML VIAL IV PUSH ONE (08:11)
[2016-08-01] MEDS ORDERED: IOHEXOL 300 MG/ML 50 ML BTL (for RAD DIAG) ONE (08:30)
[2016-08-01] MEDS ORDERED: GLUCAGON 1 MG/ML VIAL ONE (08:38)
--- NOTE | 2016-08-01 09:49 | HHI.PR ---
cc: Ramin Levy MD Immediate Post Op Note Procedure Date: Aug 01, 2016 Pre Op Diagnosis: Gallstone pancreatitis Post Op Diagnosis: Same Surgeon: Ramin Levy Warehouse Stocker(s): Marybeth Meza CFA Procedure: Laparoscopic cholecystectomy with intraoperative cholangiogram with intraop use of fluoroscopy Findings: Sludge in bile duct; cleared with 4 runs Complications: None Specimen(s) removed: Gallbladder to pathology Estimated blood loss: 30 ml Anesthesia: General Drains: None IVF (1100 ml) Patient to: PACU Patient Condition: Good Date/Time of Procedure: SEE SURGICAL CARE RECORD Ramin Levy MD Aug 01, 2016 09:49
[2016-08-01] MEDS ORDERED: fentaNYL CITRATE 250 MCG/5 ML AMP ONE (09:50)
[2016-08-01] MEDS ORDERED: MIDAZOLAM HCL 2 MG/2 ML VIAL ONE (09:51)
[2016-08-01] MEDS ORDERED: ACETAMINOPHEN/HYDROcodone 325 MG/7.5 MG TAB PO PRN ×2 (10:00)
[2016-08-01] MEDS ORDERED: *RESP: ALBUTEROL 2.5 MG/3 ML NEB (PRN) PERIprocedural Use ONLY NEB ONE (10:41)
[2016-08-01] MEDS ORDERED: DO NOT ADM ANY ANTICOAGULANT DRUGS XX PRN (10:45)
[2016-08-01 12:00] VITALS: BP 120/67; PULSE 82; RESP 16; TEMP 98.8; O2SAT 91
[2016-08-01] MEDS ORDERED: PROPOFOL 200 MG/20 ML AMP IV ONE (12:00)
[2016-08-01] MEDS ORDERED: PHENYLEPH/NS 1000 MCG/10 ML SYR IV ONE (12:00)
[2016-08-01] MEDS ORDERED: LACTATED RINGER'S 1000 ML INJ 1,000 ML IV ONE (12:00)
[2016-08-01 16:00] VITALS: BP 129/82; PULSE 84; RESP 20; TEMP 98.5; O2SAT 91
--- NOTE | 2016-08-01 16:43 | HHI.PR ---
Subjective Remarks Laparoscopic cholecystectomy was done by General Surgery this morning. She appears to have tolerated the procedure well. She denies any chest pain, nausea or vomiting and appears to be tolerating her oral intake well. Objective Vital Signs Date Time Temp Pulse Resp B/P Pulse Ox O2 Delivery O2 Flow Rate FiO2 08/01/16 12:00 98.8 82 16 120/67 91 08/01/16 10:50 97.8 78 16 143/88 95 Nasal Cannula 3 08/01/16 10:45 80 15 149/90 94 Nasal Cannula 3 08/01/16 10:30 82 14 153/89 93 Nasal Cannula 3 08/01/16 10:15 86 13 158/90 92 Nasal Cannula 3 08/01/16 10:00 89 12 167/95 93 Nasal Cannula 3 08/01/16 09:45 90 12 170/94 93 Nasal Cannula 3 08/01/16 09:41 98.4 93 10 176/97 94 Nasal Cannula 3 08/01/16 08:00 99.1 102 24 152/89 93 08/01/16 00:00 97.1 103 22 141/91 92 07/31/16 20:00 99.2 108 22 137/82 93 I/O 07/31/16 07/31/16 07/31/16 08/01/16 08/01/16 08/01/16 06:59 14:59 22:59 06:59 14:59 22:59 Intake Total 1369 ml 880 ml 855 ml 889 ml 1453 ml Output Total 750 ml 1200 ml 500 ml 1750 ml 30 ml Balance 619 ml -320 ml 355 ml -861 ml 1423 ml Intake Oral 480 ml 880 ml 480 ml 0 ml IV Total 889 ml 375 ml 889 ml 353 ml Other 1100 ml Output Urine Total 750 ml 1200 ml 500 ml 1750 ml Estimated Blood Loss 30 ml # Voids 0 # Bowel Movements 0 0 0 Result Diagram: 08/01/1642808/01/16428 Objective Remarks GENERAL: Alert and well oriented. She reports no new abdominal discomfort, but still has some. SKIN: Warm and dry. HEAD: Normocephalic. EYES: No scleral icterus. No injection or drainage. NECK: Supple, trachea midline. No JVD or lymphadenopathy. CARDIOVASCULAR: Regular rate and rhythm without murmurs, gallops, or rubs. RESPIRATORY: Breath sounds equal bilaterally. No accessory muscle use. GASTROINTESTINAL: Abdomen soft with post surgical wounds of the laparoscopic procedure present and looks fine. It is nondistended and bowel sounds are present. MUSCULOSKELETAL: Free range of motion. No cyanosis, or edema. BACK: Nontender without obvious deformity. No CVA tenderness. Assessment and Plan Assessment and Plan ASSESSMENT 1. S/P Laparoscopic Cholecystectomy. 2. Acute Pancreatitis. 3. S/P ERCP with Sphincterotomy 4. Cholecystitis with Cholelithiasis. 5. Gastroesophageal Reflux Disease. 6. Hypokalemia and Hypomagnesemia. 7. Hypertension. 8. Hyperlipidemia. 9. Advanced Osteoarthritis. 10. Anxiety Disorder. 11. Depression. PLAN 1. Continue to monitor her dietary tolerance. 2. Intravenous Proton Pump Inhibitor. 3. Intravenous fluid hydration support. 4. Gastroenterology follows. 5. General Surgery follows. 6. Follow up laboratory assessment. 7. DVT, PE and PUD prophylaxis. Juan Manuel Lopez MD Aug 01, 2016 16:43
[2016-08-01 20:00] VITALS: BP 146/73; PULSE 78; RESP 20; TEMP 97.1; O2SAT 92
--- NOTE | 2016-08-01 21:26 | MP ---
cc: JANICE LEVY M.D., DANNIE E. M.D. DATE OF SURGERY: 08/01/2016 PREOPERATIVE DIAGNOSIS: Gallstone pancreatitis. POSTOPERATIVE DIAGNOSIS Gallstone pancreatitis. PROCEDURE: 1. Laparoscopic cholecystectomy with intraoperative cholangiogram with intraoperative use of fluoroscopy. 2. Primary repair of umbilical hernia. ANESTHESIA General endotracheal SURGEON Yanna Levy MD. ESTIMATED BLOOD LOSS 30 mL FLUIDS: 1100 mL Crystalloid COMPLICATIONS: None. DRAINS: None. SPECIMEN: Gallbladder to pathology. FINDINGS: Common duct without filling defects. DESCRIPTION OF PROCEDURE: The patient was taken to the operating room and placed on the operating room table in supine position. After an adequate level of general endotracheal anesthesia was achieved, the abdomen was prepped and draped in the usual fashion. Time-out was taken confirming the correct patient, site, and procedure to be performed. The skin and subcutaneous tissue was infiltrated with local anesthetic. After injection with local anesthetic, incision was made in the skin and preperitoneal fatty tissue was dissected aside. The peritoneal cavity was directly entered and was visualized. Peritoneal fat was taken down to visualize the peritoneum. A balloon trocar was inserted and the balloon inflated. The abdomen was insufflated. The patient was placed in reverse Trendelenburg position. Three 5 mm trocars were then placed with the first to the right of the falciform ligament and second and third in the right subcostal region. All entered the abdominal cavity under direct vision uneventfully. It should be noted that the patient's falciform ligament had a small defect between the upper portion of the diaphragm and the anterior abdominal wall. This was felt to be of no consequence for this procedure. The fundus of the gallbladder was grasped and retracted upward. Omental adhesions were taken down with minimal use of electrocautery and blunt dissection. When this had been completed, the cystic duct infundibular junction and cystic artery were both circumferentially dissected. The patient also had a posterior vessel which was isolated on coming into the gallbladder. This was doubly clipped proximally, singly clipped on the gallbladder side and divided. The cystic artery was further skeletonized, doubly clipped proximally, singly clipped on the gallbladder side and divided as well. At this point the cystic duct was clipped on the gallbladder side in the cystic ductotomy was made. An Anderson cholangiocatheter was brought in via separate stab incision and the catheter could not be easily placed. A second ductotomy was made further distal on the cystic duct and the catheter was easily passed and secured with a clip. Cholangiogram was obtained under real time fluoroscopy. It appeared that some sludge was present in the distal duct and further runs demonstrated a small defect that was either an air bubble or a small stone. A fourth run with dye demonstrated clearance of this defect. When this had been completed the cholangiocatheter was removed. The cystic duct was doubly clipped distally and then divided. The gallbladder was dissected off of the liver bed with electro dissection. The gallbladder was placed into an EndoCatch device and removed via the umbilical port while observing via the upper 5 mm trocar site. The specimen was passed off the table. The upper abdomen was revisualized. No bleeding was noted from the cystic artery stumps or the liver bed. The cystic duct stump appeared to be clean and dry. All irrigation was aspirated from the abdominal cavity. Insufflation was discontinued and the upper abdominal trocars and cholangiocatheter trocar were removed. No bleeding was noted from the trocar sites during desufflation. The laparoscope and umbilical port were then removed. The fascia was closed in the umbilicus with 0 Prolene suture in a longitudinal interrupted fashion to close the defect. Following this, the remaining local anesthetic was injected into all of the trocar sites. The skin was closed at all laparoscopic trocar sites with 4-0 Vicryl in an interrupted buried fashion. The skin was dressed at all sites including the cholangiogram site with Steri-Strips. The patient was extubated and taken back to the Recovery Room in stable condition. The patient tolerated the procedure well. MD BELLE Abrams/ALICIA /7:18 PM /9:15 PM
--- NOTE | 2016-08-01 22:48 | RADRPT ---
EXAM DATE/TIME: 08/01/2016 08:37 [facility] COMPARISON: No previous studies available for comparison. INDICATIONS : Obstruction. FLUORO TIME: 1.2 minutes IMAGE COUNT: 4 MEDICAL HISTORY : None. SURGICAL HISTORY : None. ENCOUNTER: Initial ACUITY: 1 day PAIN SCORE: Non-responsive. LOCATION: Right upper abdomen PROCEDURE: CHOLANGIOGRAM, OPERATIVE 1. Intraoperative cholangiogram. In the operating room, the cystic duct stump was injected and radiographs obtained. The examination demonstrates normal caliber common bile duct without perceptible filling defect. CONCLUSION: No evidence of common duct stone. Bob Alvarez MD on August 01, 2016 at 22:46 Board Certified Radiologist. This report was verified electronically.
[2016-08-02] VITALS: BP 145/84; PULSE 89; RESP 18; TEMP 98.3; O2SAT 93
[2016-08-02] MEDS: HYDROmorphone HCL PF 1 MG/ML VIAL IV PUSH PRN ×2 (00:43→07:38)
[2016-08-02] MEDS: metroNIDAZOLE 500 MG INJ 100 ML IV SCH ×3 (03:49→20:37)
[2016-08-02 04:00] VITALS: BP 159/73; PULSE 73; RESP 20; TEMP 98; O2SAT 94
[2016-08-02] MEDS: SODIUM CHLORIDE 0.9% FLUSH 5 ML FLUSH FLUSH SCH ×2 (07:32→20:41)
[2016-08-02] MEDS: PANTOPRAZOLE SODIUM 40 MG VIAL IV PUSH SCH (07:32)
[2016-08-02 08:00] VITALS: BP 158/74; PULSE 84; RESP 18; TEMP 97.9; O2SAT 93
[2016-08-02 08:51] LABS: HEMATOCRIT 31.2 % (35.0-46.0); HEMO FLAGS DIFF FINAL; MEAN CELL VOLUME 84.9 FL (80.0-100.0); MEAN CORPUSCULAR HEMOGLOBIN 28.6 PG (27.0-34.0); MEAN CORPUSCULAR HGB CONC 33.7 % (32.0-36.0); PLATELET COUNT 267 TH/MM3 (150-450); RED BLOOD COUNT 3.68 MIL/MM3 (4.00-5.30); RED CELL DISTRIBUTION WIDTH 15.4 % (11.6-17.2); WHITE BLOOD COUNT 11.1 TH/MM3 (4.0-11.0)
[2016-08-02 08:52] LABS: AUTOMATED NEUTROPHIL # 8.7 TH/MM3 (1.8-7.7); BASOPHIL % 0.2 % (0.0-2.0); EOSINOPHIL % 0.3 % (0.0-4.0); LYMPH % 11.8 % (9.0-44.0); LYMPHOCYTE # 1.3 TH/MM3 (1.0-4.8); MONO % 9.5 % (0.0-8.0); NEUT % 78.2 % (16.0-70.0)
--- NOTE | 2016-08-02 10:04 | HHI.PR ---
Subjective Subjective Notes Tolerated breakfast well. Needed dilaudid IV for epigastric pain still; minimal RUQ pain. No nausea Objective Vitals/I&O Vital Signs Date Time Temp Pulse Resp B/P Pulse Ox O2 Delivery O2 Flow Rate FiO2 08/02/16 08:00 97.9 84 18 158/74 93 08/01/16 10:50 Nasal Cannula 3 Labs Laboratory Tests Test 08/02/16 08:04 White Blood Count 11.1 Red Blood Count 3.68 Hemoglobin 10.5 Hematocrit 31.2 Mean Corpuscular Volume 84.9 Mean Corpuscular Hemoglobin 28.6 Mean Corpuscular Hemoglobin 33.7 Concent Red Cell Distribution Width 15.4 Platelet Count 267 Mean Platelet Volume 8.1 Neutrophils (%) (Auto) 78.2 Lymphocytes (%) (Auto) 11.8 Monocytes (%) (Auto) 9.5 Eosinophils (%) (Auto) 0.3 Basophils (%) (Auto) 0.2 Neutrophils # (Auto) 8.7 Lymphocytes # (Auto) 1.3 Monocytes # (Auto) 1.1 Eosinophils # (Auto) 0.0 Basophils # (Auto) 0.0 CBC Comment DIFF FINAL Differential Comment Lungs: Clear Abdomen: Non-distended, Post-op tenderness Narrative Exam Ecchymosis around umbilicus A/P Assessment and Plan POD #1 lap maureen with IOC, still needing IV pain med for resolving pancreatitis (and postop). Plan: Change hydrocodone to tramadol heplock IVF PT for strengthening (deconditioned) Likely ready for discharge to rehab 08/03 (tomorrow). Ramin Levy MD Aug 02, 2016 10:04
[2016-08-02] MEDS: traMADol HCL 50 MG TAB PO PRN ×2 (11:50→20:36)
[2016-08-02 12:00] VITALS: BP 148/68; PULSE 82; RESP 17; TEMP 96.9; O2SAT 94
[2016-08-02 20:00] VITALS: BP 140/92; PULSE 114; RESP 20; TEMP 98.4; O2SAT 94
--- NOTE | 2016-08-02 20:28 | HHI.PR ---
Subjective Remarks She was seen by General Surgery earlier today. She has been with complaints of postoperative pain, but appears to be with less of it at this time. She denies any chest pain, nausea or vomiting and appears to be still tolerating her oral intake well. Objective Vital Signs Date Time Temp Pulse Resp B/P Pulse Ox O2 Delivery O2 Flow Rate FiO2 08/02/16 12:00 96.9 82 17 148/68 94 08/02/16 08:00 97.9 84 18 158/74 93 08/02/16 04:00 98.0 73 20 159/73 94 08/02/16 00:00 98.3 89 18 145/84 93 I/O 08/01/16 08/01/16 08/01/16 08/02/16 08/02/16 08/02/16 06:59 14:59 22:59 06:59 14:59 22:59 Intake Total 889 ml 2173 ml 750 ml 1170 ml 1470 ml Output Total 1750 ml 1630 ml 1900 ml 400 ml Balance -861 ml 543 ml 750 ml -730 ml 1070 ml Intake Oral 0 ml 720 ml 360 ml 480 ml IV Total 889 ml 353 ml 750 ml 810 ml 990 ml Other 1100 ml Output Urine Total 1750 ml 1600 ml 1900 ml 400 ml Estimated Blood Loss 30 ml # Voids 0 # Bowel Movements 0 0 0 0 Result Diagram: 08/02/16 0804 08/01/16 0429 Objective Remarks GENERAL: Alert and well oriented. She reports no new abdominal discomfort, but still has some. SKIN: Warm and dry. HEAD: Normocephalic. EYES: No scleral icterus. No injection or drainage. NECK: Supple, trachea midline. No JVD or lymphadenopathy. CARDIOVASCULAR: Regular rate and rhythm without murmurs, gallops, or rubs. RESPIRATORY: Breath sounds equal bilaterally. No accessory muscle use. GASTROINTESTINAL: Abdomen soft with post surgical wounds of the laparoscopic procedure present and looks fine. It is nondistended and bowel sounds are present. MUSCULOSKELETAL: Free range of motion. No cyanosis, or edema. BACK: Nontender without obvious deformity. No CVA tenderness. Assessment and Plan Assessment and Plan ASSESSMENT 1. S/P Laparoscopic Cholecystectomy. 2. Acute Pancreatitis. 3. S/P ERCP with Sphincterotomy 4. Cholecystitis with Cholelithiasis. 5. Gastroesophageal Reflux Disease. 6. Hypokalemia and Hypomagnesemia. 7. Hypertension. 8. Hyperlipidemia. 9. Advanced Osteoarthritis. 10. Anxiety Disorder. 11. Depression. PLAN 1. Continue to monitor her dietary tolerance. 2. Change to oral medications. 3. General Surgery follows. 4. Discharge Planning to go to Rehab. 5. DVT, PE and PUD prophylaxis. Juan Manuel Lopez MD Aug 02, 2016 20:28 Juan Manuel Lopez MD Aug 02, 2016 20:28
[2016-08-03 00:01] VITALS: BP 136/64; PULSE 95; RESP 17; TEMP 99; O2SAT 94
[2016-08-03] MEDS: traMADol HCL 50 MG TAB PO PRN ×4 (01:49→18:26)
[2016-08-03] MEDS: metroNIDAZOLE 500 MG INJ 100 ML IV SCH (04:32)
[2016-08-03 08:00] VITALS: BP_SYST 160; BP_SYST 171; BP_DIAS 90; BP_DIAS 91; PULSE 88; RESP 17; TEMP 98.3; O2SAT 93
[2016-08-03] MEDS: SODIUM CHLORIDE 0.9% FLUSH 5 ML FLUSH FLUSH SCH ×2 (09:33→20:07)
[2016-08-03 12:00] VITALS: BP 156/86; PULSE 85; RESP 18; TEMP 97.9; O2SAT 96
--- NOTE | 2016-08-03 12:01 | HHI.PR ---
Subjective Subjective Notes Feeling much better today; tolerating full liquids well. Objective Vitals/I&O Vital Signs Date Time Temp Pulse Resp B/P Pulse Ox O2 Delivery O2 Flow Rate FiO2 08/03/16 08:00 98.3 88 17 171/91 93 160/90 08/01/16 10:50 Nasal Cannula 3 Lungs: Clear Abdomen: Non-distended, Non-tender Narrative Exam Ecchymosis around umbilicus, unchanged. No erythema. A/P Assessment and Plan POD #2 lap maureen with IOC, no longer needing IV pain med for resolving pancreatitis (and postop). Doing well with tramadol. Plan: PT for strengthening (deconditioned) Ready for discharge to rehab Follow up my office 1-2 weeks Ramin Levy MD Aug 03, 2016 12:01
[2016-08-03 16:00] VITALS: BP 140/69; PULSE 92; RESP 17; TEMP 98.4; O2SAT 95
--- NOTE | 2016-08-03 17:28 | HHI.PR ---
Subjective Remarks She was given a disposition by General Surgery for discharge today. Objective Vital Signs Date Time Temp Pulse Resp B/P Pulse Ox O2 Delivery O2 Flow Rate FiO2 08/03/16 16:00 98.4 92 17 140/69 95 08/03/16 12:00 97.9 85 18 156/86 96 08/03/16 08:00 98.3 88 17 171/91 93 160/90 08/03/16 00:01 99.0 95 17 136/64 94 08/02/16 20:00 98.4 114 20 140/92 94 I/O 08/02/16 08/02/16 08/02/16 08/03/16 08/03/16 08/03/16 06:59 14:59 22:59 06:59 14:59 22:59 Intake Total 1170 ml 1470 ml 340 ml 460 ml 480 ml Output Total 1900 ml 400 ml 700 ml 800 ml 1250 ml Balance -730 ml 1070 ml -360 ml -340 ml -770 ml Intake Oral 360 ml 480 ml 240 ml 360 ml 480 ml IV Total 810 ml 990 ml 100 ml 100 ml Output Urine Total 1900 ml 400 ml 700 ml 800 ml 1250 ml # Bowel Movements 0 0 0 0 0 Result Diagram: 08/02/16 0804 08/01/16 0429 Objective Remarks GENERAL: Alert and well oriented. She reports no new abdominal discomfort, but still has some. SKIN: Warm and dry. HEAD: Normocephalic. EYES: No scleral icterus. No injection or drainage. NECK: Supple, trachea midline. No JVD or lymphadenopathy. CARDIOVASCULAR: Regular rate and rhythm without murmurs, gallops, or rubs. RESPIRATORY: Breath sounds equal bilaterally. No accessory muscle use. GASTROINTESTINAL: Abdomen soft with post surgical wounds of the laparoscopic procedure present and looks fine. It is nondistended and bowel sounds are present. MUSCULOSKELETAL: Free range of motion. No cyanosis, or edema. BACK: Nontender without obvious deformity. No CVA tenderness. Assessment and Plan Assessment and Plan ASSESSMENT 1. S/P Laparoscopic Cholecystectomy. 2. Acute Pancreatitis. 3. S/P ERCP with Sphincterotomy 4. Cholecystitis with Cholelithiasis. 5. Gastroesophageal Reflux Disease. 6. Hypokalemia and Hypomagnesemia. 7. Hypertension. 8. Hyperlipidemia. 9. Advanced Osteoarthritis. 10. Anxiety Disorder. 11. Depression. PLAN 1. Continue to monitor her dietary tolerance. 2. Continue on oral medications. 3. Okay to go to Rehab today. Juan Manuel Lopez MD Aug 03, 2016 17:28 Juan Manuel Lopez MD Aug 03, 2016 17:28
[2016-08-03] MEDS ORDERED: BISACODYL EC 5 MG TABEC PO ONE (18:15)
--- NOTE | 2017-01-04 07:45 | MD ---
cc: LUI LOPEZ M.D. ADMISSION DATE: 07/26/2016 DISCHARGE DATE: 08/03/2016 ADMISSION DIAGNOSIS Intractable abdominal pain. DISCHARGE DIAGNOSES 1. Acute pancreatitis. 2. Intractable abdominal pain. 3. Acute cholecystitis with cholelithiasis 4. ERCP with sphincterotomy. 5. Laparoscopic cholecystectomy. 6. Gastroesophageal reflux disease. 7. Hypokalemia. 8. Hypomagnesemia. 9. Hypertension. 10. Hyperlipidemia. 11. Advanced osteoarthritis. 12. Anxiety disorder. 13. Depression. BRIEF HISTORY This patient is a 80-year-old female with a presentation whereby she developed pain in the upper abdomen area that tended to radiate across the upper abdomen and through to her back. She had multiple episodes of nausea and subsequent vomiting episodes. The patient states the pain appeared to have worsen after she would eat something that she felt like was somewhat fatty in nature. She had been passing stools that she was concerned that they were darker than usual. The patient had been seen and had a weakly heme-positive stool in the office. Plans were made for the patient to be seen by Gastroenterology as an outpatient. The next day the patient was with worsening of her abdominal pain that had become really severe. She stated that on a scale of 1-10 the pain was a 12. She was transported to the [facility] Department. The patient was evaluated and found with a presentation of pancreatitis and the need to possibly rule out any gallbladder involvement. She was stabilized and admitted to the hospital in this regard. PERTINENT PHYSICAL FINDINGS GENERAL: The patient was alert, complained of severe pain in the abdominal area. NECK: Supple in character, without masses, bruits or JVD. HEART: Regular rhythm with S1 and S2 distinct. LUNGS: Clear to auscultation bilaterally. ABDOMEN: Soft with no masses palpated. The patient was markedly tender to mild palpation in the epigastric as well as right upper quadrant regions. EXTREMITIES: Good range of motion with hypertrophic changes noted at the knees bilaterally. The patient had mild peripheral edema of the lower extremities. NEUROLOGICAL: She displayed no lateralizing focal motor deficits to gross examination. HOSPITAL COURSE The patient was admitted to the hospital. She was placed on n.p.o. status. She was given intravenous hydration with electrolyte repletion. Consultation was made to Gastroenterology regarding her overall presentation. She was also with close monitoring of her intake and output status and given intravenous analgesic support. Once seen by the library assistant, the patient was also found with a presentation of possible cholecystitis. ERCP with sphincterotomy was performed and the patient had consultation to Surgery with regard to the possibility of cholecystectomy. As the patient was evaluated, it was felt that she was stable enough to go to surgery and this was done. Postoperatively she did quite well for her overall status. It was noted that the patient had complaints of some pain for her lower extremity and the possibility of phlebitis versus early venous thrombosis. Vascular ultrasound was done and this was negative for the presentation of DVT. Activity was then increased and the patient did well for the remainder of her hospitalization stay. On 08/03/2016, the patient had a disposition for being stable for discharge. Case Management had been consulted and was on board to arrange for the patient to have home health care followup after discharge versus to go to a rehabilitation center. Discussion was done with the patient regarding such and decision was made that the patient would go to a rehabilitation center after discharge. DISCHARGE DISPOSITION DIET: The patient will be on a low-salt, low-fat diet. MEDICATIONS 1. Amlodipine 5 mg daily. 2. Aspirin 81 mg daily. 3. Citalopram 20 mg daily. 4. Premarin 0.625 mg daily. 5. Zetia 10 mg daily. 6. Lorazepam 0.5 mg q. 4-6 hours p.r.n. 7. Meloxicam 15 mg daily. 8. Metoprolol succinate ER 50 mg daily. 9. Benicar 40 mg daily. 10. Ranitidine 300 mg daily. 11. Rosuvastatin 20 mg daily. 12. Tramadol 50 mg q.6 hours p.r.n. ACTIVITY The patient would have activity as she can tolerate per physical therapy at the rehab center. FOLLOWUP The patient will be discharged to a rehabilitation center. She is to see Dr. Lopez one week after discharge from the rehab center. She is recommended to see general surgery as ordered by them. MD PRASANNA Cool/SHERRIE /12:41 PM /7:32 AM
== END 2016-08-03 21:37 | DRG 418 ==
LOC: NEPC 19:33 → NEDA 22:22 → N07B 23:32
PROVIDERS: ADMIT Internal Medicine; ATTEND Internal Medicine
PROC: 0FC98ZZ Extirpation of Matter from Common Bile Duct, Via Natural or Artificial Opening Endoscopic (ICD-10-PCS; 2016-07-28)
PROC: 0WQF0ZZ Repair Abdominal Wall, Open Approach (ICD-10-PCS; 2016-08-01)
PROC: BF141ZZ Fluoroscopy of Gallbladder, Bile Ducts and Pancreatic Ducts using Low Osmolar Contrast (ICD-10-PCS; 2016-08-01)
PROC: 0FT44ZZ Resection of Gallbladder, Percutaneous Endoscopic Approach (ICD-10-PCS; principal; 2016-08-01 07:42)
DX: K85.10 Biliary acute pancreatitis without necrosis or infection (principal); K80.63 Calculus of gallbladder and bile duct with acute cholecystitis with obstruction; I10 Essential (primary) hypertension; K42.9 Umbilical hernia without obstruction or gangrene; E78.5 Hyperlipidemia, unspecified; M19.90 Unspecified osteoarthritis, unspecified site; K21.9 Gastro-esophageal reflux disease without esophagitis; Z96.642 Presence of left artificial hip joint; Z86.010 Personal history of colon polyps; K44.9 Diaphragmatic hernia without obstruction or gangrene; E78.00 Pure hypercholesterolemia, unspecified; Z96.653 Presence of artificial knee joint, bilateral; F41.9 Anxiety disorder, unspecified; F32.9 Major depressive disorder, single episode, unspecified; G47.33 Obstructive sleep apnea (adult) (pediatric); M85.80 Other specified disorders of bone density and structure, unspecified site; Z90.710 Acquired absence of both cervix and uterus; E87.6 Hypokalemia; Z23 Encounter for immunization
CPT/HCPCS: 71010; 74177; 74181; 74300; 74330; 76377; 76705; 76937; 80048; 80053; 80076; 82150; 82550; 82552; 83605; 83690; 83735; 83880; 84484; 85025; 85027; 85610; 85730; 88304; 90471; 90686; 93005; 94664; 96365; C1769; C9113; G0008; J0131; J0500; J0690; J1100; J1130; J1170; J1610; J2250; J2370; J2405; J3010; J3475; J7040; J7050; J7120; J7613; Q2038; Q9967

== ENCOUNTER 2017-07-01 21:06 | Emergency (ER) | payer MEDICARE ==
[~2017-07-01] VITALS: Ht 160 cm; Wt 85.0 kg
[~2017-07-01 21:06] MED LIST changes: +AMLO5 PO; +ASPI81TA19; +BENI40TA29 PO; +CELE20TA PO; +ESTR.625 PO; +EZET10 PO; +LORA0.5T PO; -MEDR4PAK3 PO; +MELO15TA20 PO; +RANI300C PO; -ROBA750T3 PO; +ROSU20 PO; +TOPR50TA PO; +TRAM50TA PO
[2017-07-01 21:07] VITALS: BP 179/96; PULSE 82; RESP 16; TEMP 98; O2SAT 97
--- NOTE | 2017-07-01 21:33 | PD ---
HPI Chief Complaint: Fall Time Seen by Provider: 21:20 Travel History International Travel<30 days: No Contact w/Intl Traveler<30days: No Traveled to known affect area: No History of Present Illness HPI 81-year-old female presents for evaluation after a fall. Today the patient was at home when some male fell onto the ground. She bent over to pick it up in the process of bending over lost her footing and fell, striking left side of her face against the ground. There was no loss of consciousness. There was no lightheadedness, dizziness, chest pain, palpitations, or any other symptomatology causing the fall. She is complaining some left periorbital pain and left-sided headache. Symptoms are mild, aggravated by palpation. She has a laceration inferior to the left eyebrow. Her last tetanus vaccination was 1 year ago. She takes baby aspirin on a regular basis. Denies any neck or back pain. Denies any range of motion limitations in the arms or legs. No other complaints. PFSH Past Medical History Arthritis: Yes Depression: Yes Cancer: No High Cholesterol: Yes Diabetes: No Endocrine: No Gastrointestinal Disorders: Yes (black stools lately) Genitourinary: No Hypertension: Yes Musculoskeletal: Yes Neurologic: No Reproductive: No Respiratory: Yes (CPAP-SLEEP APNEA) Immunizations Current: Yes (shingles ) Thyroid Disease: No ?: Not Menopausal: Yes : 4 Para: 4 Past Surgical History Gynecologic Surgery: Yes (hysterectomy) Hysterectomy: Yes (90s) Joint Replacement: Yes (frantz knees and left hip) Oral Surgery: Yes (salivary gland removed) Other Surgery: Yes (carpal tunnel surgery bilateral, ) Social History Alcohol Use: No Tobacco Use: No Substance Use: No Allergies-Medications (Allergen,Severity, Reaction): Coded Allergies: No Known Allergies (Verified Adverse Reaction, Unknown, 07/01/17) Reported Meds & Prescriptions Reported Meds & Active Scripts Active Reported Celexa (Citalopram Hydrobromide) 20 Mg Tab 20 Mg PO DAILY Ranitidine (Ranitidine HCl) 300 Mg Cap 300 Mg PO DAILY Tramadol (Tramadol HCl) 50 Mg Tab 50 Mg PO Q6H PRN Zetia (Ezetimibe) 10 Mg Tab 10 Mg PO DAILY Crestor (Rosuvastatin Calcium) 20 Mg Tab 20 Mg PO DAILY Norvasc (Amlodipine Besylate) 5 Mg Tab 5 Mg PO DAILY Benicar (Olmesartan) 40 Mg Tab 40 Mg PO DAILY Lorazepam 0.5 Mg Tab 0.5 Mg PO Q4H PRN Toprol XL (Metoprolol Succinate) 50 Mg Tab 50 Mg PO DAILY Aspir-Low (Aspirin) 81 Mg Tabdr Review of Systems Except as stated in HPI: all other systems reviewed are Neg Physical Exam Narrative GENERAL: Well-developed well-nourished female in no acute distress SKIN: Warm and dry. 1.5 cm horizontal well approximately laceration inferior to left eyebrow. There is left periorbital ecchymosis which is tender to palpation. HEAD: Atraumatic. Normocephalic. EYES: Pupils equal and round reactive to light extraocular muscles are intact. No scleral icterus. No injection or drainage. ENT: No nasal bleeding or discharge. Mucous membranes pink and moist. NECK: Trachea midline. No JVD. CARDIOVASCULAR: Regular rate and rhythm. No murmur appreciated. RESPIRATORY: No accessory muscle use. Clear to auscultation. Breath sounds equal bilaterally. GASTROINTESTINAL: Abdomen soft, non-tender, nondistended. Hepatic and splenic margins not palpable. MUSCULOSKELETAL: No obvious deformities. No clubbing. No cyanosis. No edema. NEUROLOGICAL: Awake and alert. No obvious cranial nerve deficits. Motor grossly within normal limits. Normal speech. PSYCHIATRIC: Appropriate mood and affect; insight and judgment normal. Data Data Last Documented VS Vital Signs Date Time Temp Pulse Resp B/P (MAP) Pulse Ox O2 Delivery O2 Flow Rate FiO2 07/01/17 21:07 98.0 82 16 179/96 (123) 97 Room Air Orders Orders Ct Brain W/O Iv Contrast(Rout) (07/01/17 ) Ct Facial Bones W/O Iv Cont (07/01/17 ) Ice/Cold Pack (07/01/17 21:28) Ed Discharge Order (07/01/17 22:23) MDM Medical Decision Making Medical Screen Exam Complete: Yes Emergency Medical Condition: Yes Medical Record Reviewed: Yes Differential Diagnosis Facial contusion, fracture, intracranial hemorrhage, laceration Narrative Course Ice pack provided. CT imaging of the brain and facial bones has been ordered. The laceration will be repaired With Dermabond, she verbally consents. CT imaging reveals no acute abnormalities. Stable for discharge. Procedures Procedure Narrative LACERATION LOCATION: Left face LENGTH: 1.5 cm NUMBER OF STITCHES/CARRILLO: Dermabond REPAIR: The wound was copiously irrigated and explored without evidence of foreign body, tendon injury or neurovascular injury. The wound was closed using Dermabond. This was a single layer repair. A sterile dressing was applied. The patient was advised to keep the dressing clean and dry. Patient tolerated the procedure well. Diagnosis Primary Impression: Facial contusion Additional Impression: Facial laceration Additional Instructions: Ice pack affected area multiple times a day 20 minutes at a time. Keep the wound clean and dry. Do not put any creams or lotions on the wound. The glue will flake off on its own over the next few weeks. Med/Other Pt SpecificInfo: Wound Care Disposition: 01 DISCHARGE HOME Condition: Stable Hector Peraza Jul 01, 2017 21:33
--- NOTE | 2017-07-01 22:08 | RADRPT ---
EXAM DATE/TIME: 07/01/2017 21:57 [facility] COMPARISON: No previous studies available for comparison. INDICATIONS : Trauma, fell and hit head. RADIATION DOSE: 40.93 CTDIvol (mGy) MEDICAL HISTORY : Hypertension. SURGICAL HISTORY : Hysterectomy. ENCOUNTER: Initial ACUITY: 1 day PAIN SCALE: 4/10 LOCATION: cranial TECHNIQUE: Multiple contiguous axial images were obtained of the head. Using automated exposure control and adj ustment of the mA and/or kV according to patient size, radiation dose was kept as low as reasonably a chievable to obtain optimal diagnostic quality images. DICOM format image data is available electro nically for review and comparison. FINDINGS: CEREBRUM: The ventricles are normal for age. No evidence of midline shift, mass lesion, hemorrhage or acute in farction. No extra-axial fluid collections are seen. POSTERIOR FOSSA: The cerebellum and brainstem are intact. The 4th ventricle is midline. The cerebellopontine angle i s unremarkable. EXTRACRANIAL: Fluid seen in some of the lower left mastoid air cells. No fracture demonstrated. SKULL: The calvaria is intact. No evidence of skull fracture. CONCLUSION: No bleed or other acute intracranial abnormality. Small, nonspecific mastoid air cell fluid on the le ft. No perceptible fracture. Bob Alvarez MD on July 01, 2017 at 22:05 Board Certified Radiologist. This report was verified electronically.
--- NOTE | 2017-07-01 22:18 | RADRPT ---
EXAM DATE/TIME: 07/01/2017 21:57 [facility] COMPARISON: No previous studies available for comparison. INDICATIONS : Trauma, fell and hit head. RADIATION DOSE: 63.48 CTDIvol (mGy) MEDICAL HISTORY : Hypertension. SURGICAL HISTORY : Hysterectomy. ENCOUNTER: Initial ACUITY: 1 day PAIN SCORE: 3/10 LOCATION: facial TECHNIQUE: Volumetric scanning of the facial bones was performed. Using automated exposure control and adjustme nt of the mA and/or kV according to patient size, radiation dose was kept as low as reasonably achiev able to obtain optimal diagnostic quality images. DICOM format image data is available electronicall y for review and comparison. FINDINGS: ORBITS: The orbital and infraorbital osseous structures are intact. The retroconal structures have a normal configuration. No radiopaque foreign bodies are seen. NASAL BONE: The nasal bone and maxillary spine are intact ZYGOMATIC ARCHES: Symmetric without evidence of fracture. SINUSES: The maxillary, ethmoid and frontal sinuses are intact. No air-fluid levels seen. NASAL CAVITY: The nasal septum is intact and midline. The lacrimal ducts are intact. SOFT TISSUES: Left zygomatic subcutaneous contusion. INTRACRANIAL: No intracranial air seen. CRIBIFORM PLATE: Grossly intact. CONCLUSION: Left cheek contusion. Intact facial bones. Bob Alvarez MD on July 01, 2017 at 22:15 Board Certified Radiologist. This report was verified electronically.
--- NOTE | 2017-07-01 22:23 | PD ---
Physical Exam Date Seen by Provider: Jul 01, 2017 Time Seen by Provider: 22:10 Narrative This patient presents for evaluation of injury sustained in a fall. Her main problem is around her left eye. She is also complaining with some left breast pain. She denies any significant chest discomfort or difficulty breathing. Data Data Last Documented VS Vital Signs Date Time Temp Pulse Resp B/P (MAP) Pulse Ox O2 Delivery O2 Flow Rate FiO2 07/01/17 21:07 98.0 82 16 179/96 (123) 97 Room Air Orders Orders Ct Brain W/O Iv Contrast(Rout) (07/01/17 ) Ct Facial Bones W/O Iv Cont (07/01/17 ) Ice/Cold Pack (07/01/17 21:28) MDM Supervised Visit with VERONICA: Yes Narrative Course I, Dr. Malik, have reviewed the advance practice practitioner's documentation and am in agreement, met with the patient face to face, made the diagnosis, and the medical decision making was done by me. *My assessment and Findings: The patient was up ambulating to the bathroom when I went in to see her. She is awake and alert and in no acute distress. She has a left periorbital contusion. CT of her head and facial bones is negative. Please see Hector Peraza PA-C's note for results of laboratory and radiographic evaluation, ED course, final diagnosis and disposition Zoila Malik MD Jul 01, 2017 22:23
== END 2017-07-01 23:02 | disposition home or self-care (01) ==
LOC: NEPD 21:06
DX: S01.81XA Laceration without foreign body of other part of head, initial encounter (principal); S00.12XA Contusion of left eyelid and periocular area, initial encounter; W01.0XXA Fall on same level from slipping, tripping and stumbling without subsequent striking against object, initial encounter; Y92.039 Unspecified place in apartment as the place of occurrence of the external cause
CPT/HCPCS: 12011; 70450; 70486